=== PATIENT | female | born 1975 ===

== ENCOUNTER 2017-06-30 20:41 | Emergency (ER) | payer OTHER ==
[2017-06-30 21:31] VITALS: BP 188/95; PULSE 93; RESP 16; TEMP 97.8; O2SAT 100; BMI 37.8
--- NOTE | 2017-06-30 21:39 | ED PDOC ---
Arrival/HPI - General Chief Complaint: Eye Problem Time Seen by Provider: 06/30/17 21:19 - History of Present Illness Narrative History of Present Illness (Text): 06/30/17 21:46 Pt is a 41 yo F with PMH of HTN presents to ED with right eye pain. Pt states that she was at work and ID badge slipped out of her hand, which is connected a retractable badge clip, and hit her in the right eye. Pt complains of pain immediately after the event with tearing, foreign body sensation, photophobia, and difficulty keeping eye open 2/2 pain. Pt does not wear contacts. Pt denies CP, SOB, n/v/d, abdominal pain, fever, chills, LAYNE, or dizziness. Past Medical History - Provider Review Nursing Documentation Reviewed: Yes Family/Social History - Physician Review Nursing Documentation Reviewed: Yes Family/Social History: No Known Family HX Allergies/Home Meds Allergies/Adverse Reactions: Allergies No Known Allergies Allergy (Verified 06/30/17 21:31) Review of Systems - Review of Systems Constitutional: Normal Eyes: Vision Changes, Photophobia, Eye Pain (right) ENT: Normal Respiratory: Normal Cardiovascular: Normal Gastrointestinal: Normal Genitourinary Female: Normal Musculoskeletal: Normal Skin: Normal Neurological: Normal Endocrine: Normal Hemo/Lymphatic: Normal Psychiatric: Normal Physical Exam Vital Signs Reviewed: Yes Vital Signs Temp Pulse Resp BP Pulse Ox 06/30/17 21:29 97.8 F 93 H 16 188/95 H 100 Temperature: Afebrile Blood Pressure: Hypertensive Pulse: Regular Respiratory Rate: Normal Appearance: Positive for: Well-Appearing Pain Distress: Moderate Mental Status: Positive for: Alert and Oriented X 3 - Systems Exam Head: Present: Atraumatic, Normocephalic Pupils: Present: PERRL Extroacular Muscles: Present: EOMI Conjunctiva: Present: Injected (right) Mouth: Present: Moist Mucous Membranes Pharnyx: Present: Normal Neck: Present: Normal Range of Motion Respiratory/Chest: Present: Clear to Auscultation. No: Respiratory Distress, Wheezes, Rales, Rhonchi Cardiovascular: Present: Regular Rate and Rhythm, Normal S1, S2. No: Murmurs Abdomen: No: Tenderness, Distention, Rebound, Guarding Neurological: Present: GCS=15 Skin: Present: Warm, Dry, Normal Color Psychiatric: Present: Alert, Oriented x 3 Medical Decision Making ED Course and Treatment: 06/30/17 21:53 Assessment: 41 yo F presents to ED with right eye trauma with likely corneal abrasion. Plan: - Tetracaine and florescein to right eye - Wood Lamp examination Wood lamp examination revealed ~2mm corneal abrasion at 12 o'clock position just superior to iris. Visual acuity 30/20 in both eyes. Patient states that she usually wears glasses , but does not have them today. Discussed findings with patient. Advised topical antibiotics for 5 days to affected eye and follow up with music leader. Patient was also found to be hypertensive, which could be 2/2 to traumatic event. However, due to her h/o hypertension she was advised to follow up with her PMD for further management and evaluation. Patient understood and agreed. Disposition/Present on Arrival - Present on Arrival Any Indicators Present on Arrival: No History of DVT/PE: No History of Uncontrolled Diabetes: No Urinary Catheter: No History of Decub. Ulcer: No - Disposition Have Diagnosis and Disposition been Completed?: Yes Diagnosis: Corneal abrasion, right Disposition: HOME/ ROUTINE Disposition Time: 21:40 Patient Plan: Discharge Condition: STABLE Discharge Instructions (ExitCare): Corneal Abrasion (DC) Additional Instructions: 1. Apply Erythromycin ointment to affected eye four times a day for 5 days 2. Follow up with music leader within 1 week 3. Return to ED if symptoms worsen Prescriptions: Erythromycin 0.5% [Ilytocin] 3.5 gm OD QID 5 Days #1 tube Referrals: Carlitos Jolly MD [Staff Provider] - Follow up with primary Forms: [email or web address] (Estonian)
== END 2017-06-30 22:15 | disposition home or self-care (01) ==
LOC: ED 20:41
DX: S05.01XA Injury of conjunctiva and corneal abrasion without foreign body, right eye, initial encounter (principal); W22.8XXA Striking against or struck by other objects, initial encounter; Y99.0 Civilian activity done for income or pay; I10 Essential (primary) hypertension

== ENCOUNTER 2017-07-15 02:46 | Emergency (ER) | payer OTHER ==
[2017-07-15 02:46] VITALS: BMI 37.8
[2017-07-15 02:58] VITALS: RESP 18; TEMP 97.9
--- NOTE | 2017-07-15 03:06 | ED PDOC ---
Arrival/HPI - General Chief Complaint: Abdominal Pain Time Seen by Provider: 07/15/17 02:49 Historian: Patient - History of Present Illness Narrative History of Present Illness (Text): 07/15/17 03:05 Vanessa Barrera is a 41 year old female who presents to the Emergency department complaining of abdominal pain. Patient states she woke up with epigastric pain at 01:00 tonight. Patient states she last ate eggs at approximately 19:00. Patient notes she recently experienced similar symptoms 5 days ago and took Tylenol and Pepcid with relief, but pain returned tonight. Patient denies any fever, chills, chest pain, shortness of breath, nausea, vomiting, urinary symptoms, back pain, neck pain, headache, dizziness, or any other complaints. Time/Duration: 1-3 hours Symptom Onset: Gradual Symptom Course: Unchanged Activities at Onset: Light, Eating Context: Home Past Medical History - Provider Review Nursing Documentation Reviewed: Yes - Cardiac Hx Hypertension: Yes - Psychiatric Hx Substance Use: No - Anesthesia Hx Anesthesia: No Family/Social History - Physician Review Nursing Documentation Reviewed: Yes Family/Social History: Unknown Family HX Smoking Status: Never Smoked Hx Alcohol Use: Yes Hx Substance Use: No Allergies/Home Meds Allergies/Adverse Reactions: Allergies No Known Allergies Allergy (Verified 07/15/17 04:40) Review of Systems - Physician Review All systems were reviewed & negative as marked: Yes - Review of Systems Constitutional: Normal. absent: Fevers Eyes: Normal ENT: Normal Respiratory: Normal. absent: SOB, Cough Cardiovascular: Normal. absent: Chest Pain Gastrointestinal: Abdominal Pain. absent: Diarrhea, Nausea, Vomiting Genitourinary Female: Normal. absent: Dysuria, Frequency, Hematuria, Urine Output Changes Musculoskeletal: Normal. absent: Back Pain, Neck Pain Skin: Normal. absent: Rash Neurological: Normal. absent: Headache, Dizziness Endocrine: Normal Hemo/Lymphatic: Normal Psychiatric: Normal Physical Exam Vital Signs Reviewed: Yes Vital Signs Temp Pulse Resp BP Pulse Ox 07/15/17 02:55 97.9 F 86 18 174/90 H 99 Temperature: Afebrile Blood Pressure: Normal Pulse: Regular Respiratory Rate: Normal Appearance: Positive for: Well-Appearing, Non-Toxic, Comfortable Pain Distress: None Mental Status: Positive for: Alert and Oriented X 3 - Systems Exam Head: Present: Atraumatic, Normocephalic Pupils: Present: PERRL Extroacular Muscles: Present: EOMI Conjunctiva: Present: Normal Mouth: Present: Moist Mucous Membranes Neck: Present: Normal Range of Motion Respiratory/Chest: Present: Clear to Auscultation, Good Air Exchange. No: Respiratory Distress, Accessory Muscle Use Cardiovascular: Present: Regular Rate and Rhythm, Normal S1, S2. No: Murmurs Abdomen: Present: Tenderness (Epigastric tenderness), Normal Bowel Sounds. No: Distention, Peritoneal Signs Back: Present: Normal Inspection Upper Extremity: Present: Normal Inspection. No: Cyanosis, Edema Lower Extremity: Present: Normal Inspection. No: Edema Neurological: Present: GCS=15, CN II-XII Intact, Speech Normal Skin: Present: Warm, Dry, Normal Color. No: Rashes Psychiatric: Present: Alert, Oriented x 3, Normal Insight, Normal Concentration Medical Decision Making ED Course and Treatment: 07/15/17 03:05 Impression: 41 year old female complaining of epigastric pain since 01:00 today. Plan: -- US Gallbladder and Pancreas -- Labs, lipase -- Urinalysis -- IV fluids -- Elixir -- Maalox -- Pepcid -- Reassess and disposition Progress Notes: 07/15/17 03:15 Reviewed EKG, NSR at [address]-segment elevations or depressions, no T-wave inversions, normal intervals. 07/15/17 05:29 US Gallbladder and Pancreas shows: Liver: The liver is mildly echogenic. This can be seen in the setting of fatty infiltration, hepatitis, cirrhosis, as well as other possibilities, please correlate clinically. No intrahepatic bile duct dilation. Gallbladder: There is cholelithiasis. One gallstone measures 2.3 cm. There is no Bardales's sign. Common bile duct: The common bile duct measures 3 mm. No stones. No dilation. Pancreas: The pancreas is not adequately evaluated due to obscuring bowel gas. Right kidney: Right kidney 11.4 cm. There is a 1.7 cm right renal cyst. No stones. No hydronephrosis. IMPRESSION: 1. There is cholelithiasis. One gallstone measures 2.3 cm. There is no Bardales's sign. 2. The liver is mildly echogenic. This can be seen in the setting of fatty infiltration, hepatitis, cirrhosis, as well as other possibilities, please correlate clinically. 07/15/17 05:50 On re-evaluation, patient feels better and is in no acute distress. I have discussed the results and plan with the patient, who expresses understanding. Patient in agreement with plan to be discharged home. Patient is stable for discharge. Patient was instructed to follow up with physician or return if symptoms worsen or new concerning symptoms arise. - Lab Interpretations Lab Results: 07/15/17 03:44 07/15/17 03:44 Lab Results 07/15/17 03:44: Urine Color Yellow, Urine Appearance Clear, Urine pH 6.0, Ur Specific [place] >= 1.030, Urine Protein Trace H, Urine Glucose (UA) Negative, Urine Ketones Negative, Urine Blood Moderate H, Urine Nitrate Negative, Urine Bilirubin Negative, Urine Urobilinogen 0.2, Ur Leukocyte Esterase Negative, Urine RBC 1 - 3, Urine WBC 0 - 2, Ur Epithelial Cells 4 - 5, Urine Bacteria Few , Urine HCG, Qual Negative 07/15/17 03:44: WBC 9.1, RBC 4.40, Hgb 14.1, Hct 39.7, MCV 90.2, MCH 32.0, MCHC 35.5, RDW 12.4, Plt Count 331, MPV 8.2 07/15/17 03:44: Sodium 142, Potassium 3.5 L, Chloride 104, Carbon Dioxide 25, Anion Gap 17, BUN 14, Creatinine 0.6 L, Est GFR ( Amer) > 60, Est GFR ( Non-Af Amer) > 60, Random Glucose 123 H, Calcium 9.8, Total Bilirubin 0.1 L, AST 21, ALT 27, Alkaline Phosphatase 105, Total Protein 7.4, Albumin 4.0, Globulin 3.4, Albumin/Globulin Ratio 1.2, Lipase 60 I have reviewed the lab results: Yes - RAD Interpretation Radiology Orders: 07/15/17 03:15 GALLBLADDER & PANCREAS [US] Stat Wardrobe Mistress: Radiologist - EKG Interpretation Interpreted by ED Physician: Yes Type: 12 lead EKG - Medication Orders Current Medication Orders: Sodium Chloride (Sodium Chloride 0.9%) 1,000 mls @ 100 mls/hr IV .Q10H SYED Last Admin: 07/15/17 03:47 Dose: 100 mls/hr eMAR Start Stop Document 07/15/17 03:47 RG (Rec: 07/15/17 03:51 [id number]) Intravenous Solution Start Date 07/15/17 Start Time 03:47 Discontinued Medications Al Hydrox/Mg Hydrox/Simethicone (Maalox Plus 30 Ml) 30 ml PO STAT STA Stop: 07/15/17 03:23 Last Admin: 07/15/17 03:46 Dose: 30 ml Belladonna/Phenobarbital ( Elixir) 5 ml PO STAT STA Stop: 07/15/17 03:23 Last Admin: 07/15/17 03:46 Dose: 5 ml Famotidine (Pepcid) 20 mg IVP STAT STA Stop: 07/15/17 03:23 Last Admin: 07/15/17 03:34 Dose: 20 mg IVP Administration Document 07/15/17 03:34 RG (Rec: 07/15/17 03:41 [id number]) Charges for Administration # of IVP Administrations 1 Ketorolac Tromethamine (Toradol) 30 mg IVP ONCE ONE Stop: 07/15/17 04:30 Last Admin: 07/15/17 04:44 Dose: 30 mg MAR Pain Assessment Document 07/15/17 04:44 RG (Rec: 07/15/17 04:45 [id number]) Pain Reassessment Is this a pain reassessment? Yes Sleep Is patient sleeping during reassessment? No Presence of Pain Presence of Pain Yes Pain Scale Used Pain Scale Used Numeric Location Upper or Lower Upper Pain Location Body Site Abdomen Description Description Sharp Intensity of Pain at present 6 Pain Behavior Guarding Rubbing Site Aggravating Factors Contant IVP Administration Document 07/15/17 04:44 RG (Rec: 07/15/17 04:45 [id number]) Charges for Administration # of IVP Administrations 1 - Scribe Statement The provider has reviewed the documentation as recorded by the Scribe Nicki Lima All medical record entries made by the Scribe were at my direction and personally dictated by me. I have reviewed the chart and agree that the record accurately reflects my personal performance of the history, physical exam, medical decision making, and the department course for this patient. I have also personally directed, reviewed, and agree with the discharge instructions and disposition. Disposition/Present on Arrival - Present on Arrival Any Indicators Present on Arrival: No History of DVT/PE: No History of Uncontrolled Diabetes: No Urinary Catheter: No History of Decub. Ulcer: No History Surgical Site Infection Following: None - Disposition Have Diagnosis and Disposition been Completed?: Yes Diagnosis: Cholelithiasis, Abdominal pain Disposition: HOME/ ROUTINE Disposition Time: 05:55 Patient Plan: Discharge Patient Problems: Current Active Problems Problem Status Onset Abdominal pain Acute Cholelithiasis Acute Condition: GOOD Discharge Instructions (ExitCare): Acute Abdomen (Belly Pain), Adult (DC), Gallstones (DC) Additional Instructions: Limit fatty food intake/take meds as prescribed/follow up with your doctor this week/any recurrent severe symptoms return to the emergency room Prescriptions: Phenobarb/Hyoscy/Atropine/Scop [ Tablet] 16.2 mg PO Q6 PRN #14 tablet PRN Reason: Dyspepsia Referrals: Alvin Pope MD [Staff Provider] - Follow up with primary Forms: [employer] (Nauruan)
[2017-07-15] MEDS ORDERED: Alum-Mag Hydrox-Simethicone Susp (30 mL) PO STA (03:22)
[2017-07-15] MEDS ORDERED: Atrop/Hyosc/Scopal/PB Elixir (120 ml) PO STA (03:22)
[2017-07-15] MEDS ORDERED: Sodium Chloride 0.9% 1,000 ML IV SCH (03:30)
[2017-07-15 04:01] LABS: URINE BILIRUBIN NEGATIVE (NEGATIVE); URINE BLOOD MODERATE (NEGATIVE); URINE GLUCOSE (UA) NEGATIVE (NEGATIVE); URINE LEUKOCYTE ESTERASE NEGATIVE Leu/uL (NEGATIVE); URINE PROTEIN TRACE mg/dL (<30 mg/dL); URINE UROBILINOGEN 0.2 E.U./dL (<1 E.U./dL)
[2017-07-15 04:07] LABS: HCG,QUALITATIVE URINE NEGATIVE (NEGATIVE); URINE APPEARANCE CLEAR (CLEAR); URINE COLOR YELLOW (YELLOW)
[2017-07-15 04:10] LABS: HEMOGLOBIN 14.1 g/dL (12.0-16.0); MEAN CELL VOLUME 90.2 fl (80.0-105.0); MEAN CORPUSCULAR HGB CONC 35.5 g/dl (31.0-37.0); MEAN PLATELET VOLUME 8.2 fl (7.0-11.0); RBC 4.4 10^6/uL (3.5-6.1); RED CELL DISTRIBUTION WIDTH 12.4 % (11.5-14.5); WHITE BLOOD COUNT 9.1 10^3/ul (4.5-11.0)
[2017-07-15 04:12] LABS: ALB/GLOB RATIO 1.2 (1.1-1.8); ALT/SGPT 27 U/L (7-56); AST/SGOT 21 U/L (14-36); BLOOD UREA NITROGEN 14 mg/dL (7-21); CALCIUM 9.8 mg/dL (8.4-10.5); GFR AFRICAN-AMERICAN > 60; GFR NON-AFRICAN AMERICAN > 60; LIPASE 60 U/L (23-300)
[2017-07-15 04:22] LABS: URINE BACTERIA FEW (NEG); URINE WBC 0 - 2 /hpf (0-6)
--- NOTE | 2017-07-15 05:27 | US ---
EXAM: US Abdomen Limited, Right Upper Quadrant CLINICAL HISTORY: 41 years old, female; Pain; Other: Ruq TECHNIQUE: Real-time ultrasound of the right upper quadrant with image documentation. COMPARISON: No relevant prior studies available. FINDINGS: Liver: The liver is mildly echogenic. This can be seen in the setting of fatty infiltration, hepatitis, cirrhosis, as well as other possibilities, please correlate clinically. No intrahepatic bile duct dilation. Gallbladder: There is cholelithiasis. One gallstone measures 2.3 cm. There is no Bardales's sign. Common bile duct: The common bile duct measures 3 mm. No stones. No dilation. Pancreas: The pancreas is not adequately evaluated due to obscuring bowel gas. Right kidney: Right kidney 11.4 cm. There is a 1.7 cm right renal cyst. No stones. No hydronephrosis. IMPRESSION: 1. There is cholelithiasis. One gallstone measures 2.3 cm. There is no Bardales's sign. 2. The liver is mildly echogenic. This can be seen in the setting of fatty infiltration, hepatitis, cirrhosis, as well as other possibilities, please correlate clinically.
[2017-07-15 06:00] VITALS: BP 146/83; PULSE 76
[2017-07-15 06:17] VITALS: O2SAT 100
--- NOTE | 2017-07-15 11:20 | CARD ---
APPROVED REPORT EKG Measurement Heart [id number] <Conclusion> Normal sinus rhythm Normal ECG
== END 2017-07-15 06:07 | disposition home or self-care (01) ==
LOC: ED 02:46
DX: K80.20 Calculus of gallbladder without cholecystitis without obstruction (principal); R10.13 Epigastric pain; I10 Essential (primary) hypertension
CPT/HCPCS: 76705; 80053; 81001; 83690; 84703; 85027; 93005; 96374; 96375; 99284; J1885; J7040

== ENCOUNTER 2017-11-01 14:05 | Emergency (ER) | payer OTHER ==
[2017-11-01 14:06] VITALS: BMI 37.8
[2017-11-01 14:21] VITALS: RESP 18; TEMP 98
[2017-11-01] MEDS ORDERED: Sodium Chloride 0.9% 1,000 ML IV STA (14:42)
[2017-11-01] MEDS ORDERED: Atrop/Hyosc/Scopal/PB Elixir (120 ml) PO STA (14:43)
[2017-11-01] MEDS ORDERED: Alum-Mag Hydrox-Simethicone Susp (30 mL) PO STA (14:43)
[2017-11-01] MEDS ORDERED: Lidocaine 2% Viscous 100 ml PO STA (14:43)
--- NOTE | 2017-11-01 14:48 | ED PDOC ---
Arrival/HPI - General Chief Complaint: Abdominal Pain Time Seen by Provider: 11/01/17 14:16 Historian: Patient - History of Present Illness Narrative History of Present Illness (Text): 11/01/17 14:30 41 year old female, whose PMH includes hypertension, hiatal hernia, and cholecystitis, who presents to the emergency department complaining of epigastric pain that became worse since last night at 08:00 PM. Patient reports this problem has been going on for 6 months and was diagnosed with esophagus dysplasia and hiatal hernia by her GI in [place]. Patient reports her GI advised her to come to the emergency department the next time the epigastric pain begins to make sure it is not a heart problem. Patient associates this symptom with weight loss and vomiting x3 last night. patient denies chest pain, shortness of breath, fever, cough, chill, diarrhea, or other complaints. Additionally, she took Tylenol for pain relief. Time/Duration: 24 hours Symptom Onset: Sudden Symptom Course: Unchanged Context: Home Past Medical History - Provider Review Nursing Documentation Reviewed: Yes - Infectious Disease Hx of Infectious Diseases: None - Reproductive Menopause: No - Cardiac Hx Hypertension: Yes - Psychiatric Hx Substance Use: No - Anesthesia Hx Anesthesia: No Family/Social History - Physician Review Nursing Documentation Reviewed: Yes Family/Social History: Unknown Family HX Smoking Status: Never Smoked Hx Alcohol Use: Yes Hx Substance Use: No Allergies/Home Meds Allergies/Adverse Reactions: Allergies No Known Allergies Allergy (Verified 07/15/17 04:40) Review of Systems - Review of Systems Constitutional: Weight Change. absent: Fevers ENT: absent: Sinus Congestion Respiratory: absent: SOB Cardiovascular: absent: Chest Pain Gastrointestinal: Abdominal Pain (epigastric), Nausea, Vomiting. absent: Diarrhea Musculoskeletal: absent: Back Pain Skin: absent: Rash Neurological: absent: Headache Endocrine: absent: Diaphoresis Physical Exam Vital Signs Reviewed: Yes Vital Signs Temp Pulse Resp BP Pulse Ox 11/01/17 17:26 76 18 118/76 98 11/01/17 14:20 98.0 F 87 18 159/88 H 100 Temperature: Afebrile Blood Pressure: Hypertensive Pulse: Regular Respiratory Rate: Normal Appearance: Positive for: Well-Appearing, Non-Toxic, Comfortable Pain Distress: None Mental Status: Positive for: Alert and Oriented X 3 - Systems Exam Head: Present: Atraumatic, Normocephalic Pupils: Present: PERRL Extroacular Muscles: Present: EOMI Conjunctiva: Present: Normal Respiratory/Chest: Present: Clear to Auscultation, Good Air Exchange. No: Respiratory Distress, Accessory Muscle Use, Wheezes, Decreased Breath Sounds, Rales, Retracting, Rhonchi Cardiovascular: Present: Regular Rate and Rhythm, Normal S1, S2. No: Murmurs Abdomen: Present: Tenderness (epigastric ), Normal Bowel Sounds, Guarding. No: Distention, Peritoneal Signs, Rebound Neurological: Present: GCS=15, CN II-XII Intact, Speech Normal Skin: Present: Warm, Dry, Normal Color. No: Rashes Psychiatric: Present: Alert, Oriented x 3, Normal Insight, Normal Concentration Medical Decision Making ED Course and Treatment: 11/01/17 Impression: 41 year old female with epigastric tenderness with guarding complaining of epigastric abdominal pain. Differential Diagnosis included but are not limited to: Abdominal Pain r/o Cholecystitis vs GERD Plan: -- Ultrasound -- Labs -- Pepcid, Zofran, Lidocaine 2%, , Maalox, and Sodium Chloride -- Reassess and disposition Progress Notes: EKG: Ordered, reviewed, and independently interpreted the EKG. Rate : 81 BPM Rhythm : NSR Interpretation : incomplete RBBB T-wave inversion. no different to prior EKG Comparison : 07/15/2017 11/01/17 15:40 Abdomen Ultrasound: Creator : Aron Saez MD COMPARISON: 07/15/2017 abdominal ultrasound FINDINGS: LIVER: Measures 15.3 cm. Hepatopedal blood flow. Fatty infiltration manifest ultrasonographically as increased echogenicity of the liver parenchyma. No mass. No intrahepatic bile duct dilatation. GALLBLADDER: Cholelithiasis. Negative study for gallbladder wall thickening, pericholecystic fluid, sonographic Bardales's sign. Sludge identified. COMMON BILE DUCT: Measures 4.4 mm. No stones. No dilatation. PANCREAS: Obscured by overlying bowel gas. Non diagnostic assessment of the pancreas RIGHT KIDNEY: Measures 4.9 x 11.3cm. Normal echogenicity. No calculus, mass, or hydronephrosis. LEFT KIDNEY: Measures 4.6 x 10.2cm. Normal echogenicity. No calculus, mass, or hydronephrosis. SPLEEN: Normal in size and contour. No mass. AORTA: No aneurysmal dilatation. IVC: Obscured by overlying bowel gas. Non diagnostic assessment of inferior vena cava OTHER FINDINGS: None. IMPRESSION: Cholelithiasis. No sonographic evidence of acute cholecystitis. Sludge also identified. Limitations of the current examination: Nondiagnostic study of the pancreas. The IVC is also obscured by overlying bowel gas 11/01/17 15:40 Patient's US was negative for Acute cholecysitis. I reviewed her labs and significant finding. I discussed the results in detail with the patient. On reevaluation, she felt better and no longer had pain. Her abdomen was soft, not tender, and not distended. She's tolerating PO fluids and food. She will make sure to continue the follow up she has with her GI doctor in [place] and her PMD. She was advised to return to the ED if symptoms worsen or any other concern. - Lab Interpretations Lab Results: 11/01/17 15:55 11/01/17 15:55 Lab Results 11/01/17 15:55: Sodium 142, Potassium 4.1, Chloride 106, Carbon Dioxide 26, Anion Gap 15, BUN 8, Creatinine 0.6 L, Est GFR ( Amer) > 60, Est GFR (Non -Af Amer) > 60, Random Glucose 89, Calcium 8.8, Magnesium 1.9, Total Bilirubin 0.4, AST 21, ALT 19, Alkaline Phosphatase 74, Total Protein 7.3, Albumin 4.0, Globulin 3.3, Albumin/Globulin Ratio 1.2, Lipase 35 11/01/17 15:55: WBC 8.7, RBC 4.39, Hgb 13.9, Hct 39.7, MCV 90.4, MCH 31.7, MCHC 35.0, RDW 12.0, Plt Count 363, MPV 8.5, Gran % 68.5 H, Lymph % (Auto) 24.7, [place] % (Auto) 4.3, Eos % (Auto) 2.3, Baso % (Auto) 0.2, Gran # 5.92, Lymph # ( Auto) 2.1, [place] # (Auto) 0.4, Eos # (Auto) 0.2, Baso # (Auto) 0.02 I have reviewed the lab results: Yes - RAD Interpretation Radiology Orders: 11/01/17 14:42 ABDOMEN COMPLETE [US] [employer] Product Manager: Radiologist - EKG Interpretation Interpreted by ED Physician: Yes Type: 12 lead EKG - Medication Orders Current Medication Orders: Discontinued Medications Al Hydrox/Mg Hydrox/Simethicone (Maalox Plus 30 Ml) 30 ml PO STAT STA Stop: 11/01/17 14:44 Last Admin: 11/01/17 16:03 Dose: 30 ml Belladonna/Phenobarbital ( Elixir) 10 ml PO STAT STA Stop: 11/01/17 14:44 Last Admin: 11/01/17 16:06 Dose: 10 ml Famotidine (Pepcid) 20 mg IVP STAT STA Stop: 11/01/17 14:43 Last Admin: 11/01/17 16:04 Dose: 20 mg IVP Administration Document 11/01/17 16:04 GMD (Rec: 11/01/17 16:04 [email or web address] Charges for Administration # of IVP Administrations 1 Sodium Chloride (Sodium Chloride 0.9%) 1,000 mls @ 1,000 mls/hr IV .Q1H STA Stop: 11/01/17 15:41 Last Admin: 11/01/17 16:01 Dose: 1,000 mls/hr eMAR Start Stop Document 11/01/17 16:01 GMD (Rec: 11/01/17 16:02 [email or web address]) Intravenous Solution Start Date 11/01/17 Start Time 16:02 End Date 11/01/17 End time 17:02 Total Infusion Time 60 Lidocaine HCl (Lidocaine 2% Viscous) 15 ml PO ONCE ONE Stop: 11/01/17 15:01 Last Admin: 11/01/17 16:03 Dose: 15 ml Ondansetron HCl (Zofran Inj) 4 mg IVP STAT STA Stop: 11/01/17 14:43 Last Admin: 11/01/17 16:04 Dose: 4 mg IVP Administration Document 11/01/17 16:04 GMD (Rec: 11/01/17 16:04 [email or web address]) Charges for Administration # of IVP Administrations 1 - Scribe Statement The provider has reviewed the documentation as recorded by the Scribe Jeanette Puga Provider Scribe Attestation: All medical record entries made by the Scribe were at my direction and personally dictated by me. I have reviewed the chart and agree that the record accurately reflects my personal performance of the history, physical exam, medical decision making, and the department course for this patient. I have also personally directed, reviewed, and agree with the discharge instructions and disposition. Disposition/Present on Arrival - Present on Arrival Any Indicators Present on Arrival: No History of DVT/PE: No History of Uncontrolled Diabetes: No Urinary Catheter: No History of Decub. Ulcer: No History Surgical Site Infection Following: None - Disposition Have Diagnosis and Disposition been Completed?: Yes Diagnosis: Abdominal pain Disposition: HOME/ ROUTINE Disposition Time: 15:40 Patient Plan: Discharge Condition: IMPROVED Discharge Instructions (ExitCare): Acute Abdomen (Belly Pain) Additional Instructions: ADIA GU, thank you for letting us take care of you today. Your provider was Tony Delgadillo DO and you were treated for ABDOMINAL PAIN. The emergency medical care you received today was directed at your acute symptoms. If you were prescribed any medication, please fill it and take as directed. It may take several days for your symptoms to resolve. Return to the Emergency Department if your symptoms worsen, do not improve, or if you have any other problems. Please contact your doctor or call one of the physicians/clinics you have been referred to that are listed on the Patient Visit Information form that is included in your discharge packet. Bring any paperwork you were given at discharge with you along with any medications you are taking to your follow up visit. Our treatment cannot replace ongoing medical care by a primary care provider outside of the emergency department. Thank you for allowing the [facility] team to be part of your care today. If you had an X-Ray or CT scan: A Radiologist will review the ED reading if any change in treatment is needed we will contact you. If you had a blood, urine, or wound culture: It will take several days for the results, if any change in treatment is needed we will contact you. If you had an STI test: It will take 48 hours for the results. Please call after 1 week if you have not heard back. Prescriptions: Phenobarb/Hyoscy/Atropine/Scop [ Elixir] 16.2 mg PO BID PRN #1 elixir PRN Reason: Pain, Mild (1-3) Referrals: Kaia Shook MD [Staff Provider] - Follow up with primary Forms: [employer] (Qatari), WORK NOTE
--- NOTE | 2017-11-01 15:38 | US ---
HISTORY: Coronal pain r/o cholecystitis COMPARISON: 07/15/2017 abdominal ultrasound TECHNIQUE: Sonographic evaluation of the abdomen. FINDINGS: LIVER: Measures 15.3 cm. Hepatopedal blood flow. Fatty infiltration manifest ultrasonographically as increased echogenicity of the liver parenchyma. No mass. No intrahepatic bile duct dilatation. GALLBLADDER: Cholelithiasis. Negative study for gallbladder wall thickening, pericholecystic fluid, sonographic Bardales's sign. Sludge identified. COMMON BILE DUCT: Measures 4.4 mm. No stones. No dilatation. PANCREAS: Obscured by overlying bowel gas. Non diagnostic assessment of the pancreas RIGHT KIDNEY: Measures 4.9 x 11.3cm. Normal echogenicity. No calculus, mass, or hydronephrosis. LEFT KIDNEY: Measures 4.6 x 10.2cm. Normal echogenicity. No calculus, mass, or hydronephrosis. SPLEEN: Normal in size and contour. No mass. AORTA: No aneurysmal dilatation. IVC: Obscured by overlying bowel gas. Non diagnostic assessment of inferior vena cava OTHER FINDINGS: None. IMPRESSION: Cholelithiasis. No sonographic evidence of acute cholecystitis. Sludge also identified. Limitations of the current examination: Nondiagnostic study of the pancreas. The IVC is also obscured by overlying bowel gas
[2017-11-01 16:21] LABS: BASO # 0.02 K/mm3 (0.0-2.0); BASO % 0.2 % (0.0-3.0); EOS # 0.2 (0.0-0.7); EOS % 2.3 % (1.5-5.0); GRAN # 5.92 (1.4-6.5); GRAN % 68.5 % (50.0-68.0); HEMOGLOBIN 13.9 g/dL (12.0-16.0); LYMPH # 2.1 (1.2-3.4); LYMPH % 24.7 % (22.0-35.0); MEAN CELL VOLUME 90.4 fl (80.0-105.0); MEAN CORPUSCULAR HEMOGLOBIN 31.7 pg (25.0-35.0); MEAN PLATELET VOLUME 8.5 fl (7.0-11.0); MONO # 0.4 (0.1-0.6); MONO % 4.3 % (1.0-6.0); RBC 4.39 10^6/uL (3.5-6.1); WHITE BLOOD COUNT 8.7 10^3/ul (4.5-11.0)
[2017-11-01 16:22] LABS: ALB/GLOB RATIO 1.2 (1.1-1.8); ALT/SGPT 19 U/L (7-56); AST/SGOT 21 U/L (14-36); BLOOD UREA NITROGEN 8 mg/dL (7-21); CALCIUM 8.8 mg/dL (8.4-10.5); GFR AFRICAN-AMERICAN > 60; GFR NON-AFRICAN AMERICAN > 60; LIPASE 35 U/L (23-300)
[2017-11-01 17:27] VITALS: BP 118/76; PULSE 76; O2SAT 98
--- NOTE | 2017-11-02 08:34 | CARD ---
APPROVED REPORT EKG Measurement Heart [id number] MN [id number] [id number] <Conclusion> Normal sinus rhythm Incomplete right bundle branch block PRWP NSSTW changes
== END 2017-11-01 17:32 | disposition home or self-care (01) ==
LOC: ED 14:05
DX: R10.13 Epigastric pain (principal); I10 Essential (primary) hypertension
CPT/HCPCS: 76700; 80053; 83690; 83735; 85025; 93005; 96361; 96374; 96375; 99284; J2405; J7030

== ENCOUNTER 2017-11-22 00:44 | Inpatient (IN) | payer OTHER ==
[2017-11-22 00:50] VITALS: BMI 29.5
--- NOTE | 2017-11-22 00:57 | ED PDOC ---
Arrival/HPI - General Time Seen by Provider: 11/22/17 00:53 Historian: Patient - History of Present Illness Narrative History of Present Illness (Text): 11/22/17 00:57 Glen Barrera is a 42 year old female, whose past medical history includes hypertension, hiatal hernia, and cholelithiaisis, who presents to the emergency department complaining of chest/abdominal pain. Patient states she has been experiencing worsening epigastric abdominal pain radiating to her chest and back for the past 24 hours. Patient notes she recently underwent an endoscopy and CT Abdomen/Pelvis and was advised to undergo a HIDA scan by her nutter up. Patient denies any fevers, chills, shortness of breath, nausea, vomiting, diarrhea, urinary symptoms, headache, dizziness, or any other complaint. Symptom Onset: Gradual Symptom Course: Unchanged Activities at Onset: Light Context: Home Past Medical History - Provider Review Nursing Documentation Reviewed: Yes - Infectious Disease Hx of Infectious Diseases: None - Cardiac Hx Hypertension: Yes - Psychiatric Hx Substance Use: No - Anesthesia Hx Anesthesia: No Family/Social History - Physician Review Nursing Documentation Reviewed: Yes Family/Social History: Unknown Family HX Smoking Status: Never Smoked Hx Alcohol Use: Yes Hx Substance Use: No Allergies/Home Meds Allergies/Adverse Reactions: Allergies No Known Allergies Allergy (Verified 11/22/17 00:59) Home Medications: Home Meds Medication Instructions Recorded Confirmed No Known Home Med 11/22/17 11/22/17 Review of Systems - Physician Review All systems were reviewed & negative as marked: Yes - Review of Systems Constitutional: Normal. absent: Fevers Eyes: Normal ENT: Normal Respiratory: Normal. absent: SOB, Cough Gastrointestinal: Abdominal Pain Genitourinary Female: Normal. absent: Dysuria, Frequency, Hematuria, Urine Output Changes Skin: Normal. absent: Rash Neurological: Normal. absent: Headache, Dizziness Endocrine: Normal Hemo/Lymphatic: Normal Psychiatric: Normal Physical Exam Vital Signs Reviewed: Yes Vital Signs Temp Pulse Resp BP Pulse Ox 11/22/17 04:24 91 H 18 144/85 99 11/22/17 00:59 99.3 F 98 H 18 145/93 H 100 Temperature: Afebrile Blood Pressure: Normal Pulse: Regular Respiratory Rate: Normal Appearance: Positive for: Well-Appearing, Non-Toxic, Comfortable Pain Distress: None Mental Status: Positive for: Alert and Oriented X 3 - Systems Exam Head: Present: Atraumatic, Normocephalic Pupils: Present: PERRL Extroacular Muscles: Present: EOMI Conjunctiva: Present: Normal Mouth: Present: Moist Mucous Membranes Neck: Present: Normal Range of Motion Respiratory/Chest: Present: Clear to Auscultation, Good Air Exchange. No: Respiratory Distress, Accessory Muscle Use Cardiovascular: Present: Regular Rate and Rhythm, Normal S1, S2. No: Murmurs Abdomen: Present: Tenderness (Tenderness to epigastric/upper abdominal region). No: Distention, Peritoneal Signs Back: Present: Normal Inspection Upper Extremity: Present: Normal Inspection. No: Cyanosis, Edema Lower Extremity: Present: Normal Inspection. No: Edema Neurological: Present: GCS=15, CN II-XII Intact, Speech Normal Skin: Present: Warm, Dry, Normal Color. No: Rashes Psychiatric: Present: Alert, Oriented x 3, Normal Insight, Normal Concentration Medical Decision Making ED Course and Treatment: 11/22/17 00:57 Impression: 42 year old female complaining of epigastric pain radiating to chest and back x 1 day. Plan: -- US Gallbladder and Pancreas -- EKG -- CXR -- Labs, lipase -- Reassess and disposition Prior Visits: Notes and results from previous visits were reviewed. Progress Notes: Reviewed EKG, sinus tachycardia at 101 bpm. Incomplete RBBB. Non-specific ST/T wave changes. 11/22/17 02:44 US Gallbladder and Pancreas shows: Liver: No mass. No intrahepatic bile duct dilation. Gallbladder: There is a 2.5 cm impacted stone in the gallbladder neck. There is a stone in the gallbladder fundus with extensive shadowing. Extensive shadowing limits the visualization of the gallbladder. Gallbladder wall is limited. Common bile duct: Unremarkable as visualized 4 mm. No stones. No dilation. Pancreas: The pancreas is poorly-visualized due to overlying bowel gas. Right kidney: Unremarkable. No stones. No solid mass. No hydronephrosis. IMPRESSION: Cholelithiasis. Gallbladder neck stone. Additional findings: Right renal cyst. 11/22/17 04:[address] Barth, covering for Dr. Wolfe, who is aware and agrees with plan. Accepts pt in to her service. Pt will be admitted to [facility] for biliary colic and acute cholecystitis. - Lab Interpretations Lab Results: 11/22/17 02:01 11/22/17 02:01 Lab Results 11/22/17 02:01: WBC 16.1 H D, RBC 4.75, Hgb 15.3, Hct 42.3, MCV 89.1, MCH 32.2, MCHC 36.2, RDW 12.0, Plt Count 347, MPV 8.6 11/22/17 02:01: Sodium 139, Potassium 4.4, Chloride 103, Carbon Dioxide 21, Anion Gap 19, BUN 7, Creatinine 0.5 L, Est GFR ( Amer) > 60, Est GFR (Non -Af Amer) > 60, Random Glucose 100, Calcium 9.3, Total Bilirubin 0.8, AST 24, ALT 30, Alkaline Phosphatase 91, Lactate Dehydrogenase 309 L, Total Creatine Kinase 34 L, Troponin I < 0.01, Total Protein 8.3, Albumin 4.6, Globulin 3.7, Albumin/Globulin Ratio 1.2, Lipase 50 - RAD Interpretation Radiology Orders: 11/22/17 00:59 CHEST PORTABLE [RAD] Stat 11/22/17 01:00 GALLBLADDER & PANCREAS [US] Stat - EKG Interpretation Interpreted by ED Physician: Yes Type: 12 lead EKG - Medication Orders Current Medication Orders: Sodium Chloride (Sodium Chloride 0.9%) 1,000 mls @ 999 mls/hr IV .Q1H1M STA Stop: 11/22/17 04:53 Last Admin: 11/22/17 04:15 Dose: 999 mls/hr eMAR Start Stop Document 11/22/17 04:15 RG (Rec: 11/22/17 04:36 [id number]) Intravenous Solution Start Date 11/22/17 Start Time 04:15 Discontinued Medications Ceftriaxone Sodium (Rocephin 1 Gram Ivpb) 1 gm in 100 mls @ 200 mls/hr IV ONCE STA PRN Reason: Protocol Stop: 11/22/17 03:15 Last Admin: 11/22/17 03:20 Dose: 200 mls/hr eMAR Start Stop Document 11/22/17 03:20 RG (Rec: 11/22/17 03:41 [id number]) Intravenous Solution Start Date 11/22/17 Start Time 03:20 Metronidazole (Flagyl) 500 mg in 100 mls @ 100 mls/hr IVPB STAT STA PRN Reason: Protocol Stop: 11/22/17 03:46 Morphine Sulfate (Morphine) 2 mg IVP STAT STA Stop: 11/22/17 02:49 Last Admin: 11/22/17 03:10 Dose: 2 mg Re-Assess: MAR Pain Assessment Document 11/22/17 04:10 RG (Rec: 11/22/17 04:[id number] Pain Reassessment Is this a pain reassessment? Yes Sleep Is patient sleeping during reassessment? No Presence of Pain Presence of Pain Yes Pain Scale Used Pain Scale Used Numeric Description Intensity of Pain at present 8 Morphine Sulfate (Morphine) 2 mg IVP STAT STA Stop: 11/22/17 03:54 Last Admin: 11/22/17 04:15 Dose: 2 mg MAR Pain Assessment Document 11/22/17 04:15 RG (Rec: 11/22/17 04:35 [id number] Pain Reassessment Is this a pain reassessment? Yes Presence of Pain Presence of Pain Yes Location Upper or Lower Upper Pain Location Body Site Chest Abdomen Description Description Constant Intensity of Pain at present 8 Acceptable Level of Pain 4 Pain Behavior Moaning Crying Guarding IVP Administration Document 11/22/17 04:15 RG (Rec: 11/22/17 04:35 [id number] Charges for Administration # of IVP Administrations 1 Ondansetron HCl (Zofran Inj) 4 mg IVP ONCE ONE Stop: 11/22/17 02:49 Last Admin: 11/22/17 03:24 Dose: 4 mg IVP Administration Document 11/22/17 03:24 RG (Rec: 11/22/17 03:26 [id number] Charges for Administration # of IVP Administrations 1 Ondansetron HCl (Zofran Inj) 4 mg IVP ONCE ONE Stop: 11/22/17 03:54 Last Admin: 11/22/17 04:15 Dose: 4 mg IVP Administration Document 11/22/17 04:15 RG (Rec: 11/22/17 04:33 [id number] Charges for Administration # of IVP Administrations 1 - Scribe Statement The provider has reviewed the documentation as recorded by the Jinnyibtomi Lima Provider Scribe Attestation: All medical record entries made by the Scribe were at my direction and personally dictated by me. I have reviewed the chart and agree that the record accurately reflects my personal performance of the history, physical exam, medical decision making, and the department course for this patient. I have also personally directed, reviewed, and agree with the discharge instructions and disposition. Disposition/Present on Arrival - Present on Arrival Any Indicators Present on Arrival: No History of DVT/PE: No History of Uncontrolled Diabetes: No Urinary Catheter: No History of Decub. Ulcer: No History Surgical Site Infection Following: None - Disposition Have Diagnosis and Disposition been Completed?: Yes Diagnosis: Cholecystitis, Biliary colic Disposition: HOSPITALIZED Disposition Time: 04:46 Condition: STABLE
[2017-11-22 02:11] LABS: HEMOGLOBIN 15.3 g/dL (12.0-16.0); MEAN CELL VOLUME 89.1 fl (80.0-105.0); MEAN CORPUSCULAR HEMOGLOBIN 32.2 pg (25.0-35.0); MEAN CORPUSCULAR HGB CONC 36.2 g/dl (31.0-37.0); MEAN PLATELET VOLUME 8.6 fl (7.0-11.0); RBC 4.75 10^6/uL (3.5-6.1); WHITE BLOOD COUNT 16.1 10^3/ul (4.5-11.0)
[2017-11-22] MEDS ORDERED: cefTRIAXone 1 gm 1 GM/100 ML BAG IV STA (02:46)
[2017-11-22] MEDS ORDERED: metroNIDAZOLE IV 500 mg/100 ml 500 MG/100 ML BAG IVPB STA (02:47)
[2017-11-22] MEDS ORDERED: Morphine 2 mg/ml ISec IVP STA ×2 (02:48→03:53)
[2017-11-22 02:57] LABS: ALB/GLOB RATIO 1.2 (1.1-1.8); ALBUMIN 4.6 g/dL (3.0-4.8); ALT/SGPT 30 U/L (7-56); AST/SGOT 24 U/L (14-36); BLOOD UREA NITROGEN 7 mg/dL (7-21); CALCIUM 9.3 mg/dL (8.4-10.5); GFR AFRICAN-AMERICAN > 60; GFR NON-AFRICAN AMERICAN > 60; LIPASE 50 U/L (23-300); TROPONIN I < 0.01 ng/mL
[2017-11-22] MEDS ORDERED: Sodium Chloride 0.9% 1,000 ML IV STA ×2 (03:53→04:46)
[2017-11-22] MEDS ORDERED: Morphine 2 mg/ml ISec IVP PRN (06:24)
--- NOTE | 2017-11-22 07:31 | CP.PCM.CON ---
History of Present Illness - History of Present Illness History of Present Illness: Surgery Consult: Dr. Sanderson Pt is a 42F with PMHx significant for HTN & cholelithiasis who presents to [facility] [place] with complaints of abdominal pain that started on Thursday. Pt states she has had abdominal pain on & off since June, and has been following up with a GI Dr. Aragon at [place]. Pt reports pain at the epigastric region with intolerance to certain foods. She states she underwent EGD in July which showed metaplasia and she was started on Prilosec, however her symptoms have not improved. She reports associated N/V, as well as weight loss of 45lbs since July without trying. Pt reports the current episode started on thursday with the same epigastric pain. She also admits to bilious vomiting but denies blood. Denies bloody BMs, fevers or chills. In the ER, pt had an US of her RUQ which shows cholelithiasis & + sonographic Bardales's sign. Surgery consulted to evaluate. Currently, pt is resting comfortably. States her pain has slightly improved but still present. Denies N/V , F/C, chest pain or SOB. PMHx: HTN, cholelithiasis PSHx: denies SocialHx: denies smoking/drugs, social EtOH NKDA Review of Systems - Review of Systems All systems: reviewed and no additional remarkable complaints except (as per HPI ) Past Patient History - Infectious Disease Hx of Infectious Diseases: None - Past Social History Smoking Status: Never Smoked - CARDIAC Hx Hypertension: Yes - PSYCHIATRIC Hx Substance Use: No - SURGICAL HISTORY Hx Surgeries: No - ANESTHESIA Hx Anesthesia: No Meds Allergies/Adverse Reactions: Allergies Allergy/AdvReac Type Severity Reaction Status Date / Time No Known Allergies Allergy Verified 11/22/17 00:59 - Medications Medications: Current Medications Sodium Chloride (Sodium Chloride 0.9%) 1,000 mls @ 100 mls/hr IV .Q10H STA Stop: 11/22/17 14:45 Last Admin: 11/22/17 05:09 Dose: 100 mls/hr Cefoxitin Sodium 1 gm/ Sodium (Chloride) 100 mls @ 100 mls/hr IV Q8H SYED PRN Reason: Protocol Stop: 11/24/17 06:31 Metronidazole (Flagyl) 500 mg in 100 mls @ 100 mls/hr IVPB Q8 SYED PRN Reason: Protocol Stop: 11/24/17 14:01 Morphine Sulfate (Morphine) 2 mg IVP Q4H PRN PRN Reason: Pain, moderate (4-7) Last Admin: 11/22/17 06:54 Dose: 2 mg Ondansetron HCl (Zofran Inj) 4 mg IVP Q4H PRN PRN Reason: Nausea/Vomiting Last Admin: 11/22/17 06:54 Dose: 4 mg Physical Exam - Constitutional Appears: Well, No Acute Distress - Head Exam Head Exam: ATRAUMATIC, NORMOCEPHALIC - Eye Exam Eye Exam: Normal appearance - ENT Exam ENT Exam: Mucous Membranes Moist - Respiratory Exam Respiratory Exam: NORMAL BREATHING PATTERN - Cardiovascular Exam Cardiovascular Exam: RRR - GI/Abdominal Exam GI & Abdominal Exam: Soft, Tenderness (RUQ/epigastric region ). absent: Distended, Guarding, Rebound - Extremities Exam Extremities exam: Negative for: tenderness - Neurological Exam Neurological exam: Alert, Oriented x3 - Skin Skin Exam: Dry, Warm Results - Vital Signs Recent Vital Signs: Last Vital Signs Temp 98.4 F 11/22/17 04:59 Pulse 82 11/22/17 04:59 Resp 14 11/22/17 04:59 BP 142/82 11/22/17 04:59 Pulse Ox 100 11/22/17 04:59 - Labs Result Diagrams: 11/22/17 02:01 11/22/17 02:01 - Imaging and Cardiology US - abdomen Status: Image reviewed by me, Report reviewed by me Assessment & Plan - Assessment and Plan (Free Text) Assessment: 42F with cholelithiasis & probable cholecystitis Plan: - will discuss need for HIDA with Dr. Sanderson - IVF & IV ABX - pain management - d/w Dr. Kin Larkin
[2017-11-22] MEDS ORDERED: HYDROmorphone 0.5 mg/0.5 ml ISec IVP PRN (07:43)
--- NOTE | 2017-11-22 11:00 | RAD ---
Date of service: 11/22/2017 HISTORY: fever COMPARISON: No prior. FINDINGS: LUNGS: No active pulmonary disease. PLEURA: No significant pleural effusion identified, no pneumothorax apparent. CARDIOVASCULAR: Normal. OSSEOUS STRUCTURES: No significant abnormalities. VISUALIZED UPPER ABDOMEN: Normal. OTHER FINDINGS: None. IMPRESSION: No active disease.
--- NOTE | 2017-11-22 11:10 | US ---
Date of service: 11/22/2017 HISTORY: pain COMPARISON: 11/01/2017. TECHNIQUE: Sonographic evaluation of the right upper quadrant of the abdomen. FINDINGS: LIVER: Measures 16.0 cm in length. Hepatopedal blood flow. Fatty infiltration manifest ultrasonographically as increased echogenicity of the liver parenchyma. No mass. No intrahepatic bile duct dilatation. GALLBLADDER: Gallstones including 2.5 cm stone impacted in the neck of the gallbladder. Positive sonographic Bardales's sign. COMMON BILE DUCT: Measures 4.5 mm. No stones. No dilatation. PANCREAS: Obscured by overlying bowel gas. Non diagnostic assessment of the pancreas RIGHT KIDNEY: Measures 4.4 x 11.1 cm in length. Normal echogenicity. No calculus, mass, or hydronephrosis.Incidental finding(s): Simple cyst midpole 1.2 x 1.3 cm. AORTA: No aneurysmal dilatation. IVC: Unremarkable. OTHER FINDINGS: None . IMPRESSION: Cholelithiasis/positive sonographic Bardales's sign presumptive evidence for acute cholecystitis. Limitations of the current examination: Nondiagnostic assessment of the pancreas. Concordant results (preliminary interpretation) provided by [facility]. Procedure Completed: 01:28. Preliminary ([facility]) Report: Dictated and Authenticated: 02:42 Final Interpretation: 11:09. November 22, 2017.
[2017-11-22] MEDS: HYDROmorphone 2 mg/ml ISec IVP PRN ×3 (12:03→21:10)
--- NOTE | 2017-11-22 12:52 | CARD ---
APPROVED REPORT Date of service: 11/22/2017 EKG Measurement Heart [id number] OR [id number] <Conclusion> Sinus tachycardia Incomplete right bundle branch block Cannot rule out Anterior infarct, age undetermined Abnormal ECG
[2017-11-22] MEDS: cefOXitin Sodium 1 GM in Sodium Chloride 0.9% 100 ML IV SCH ×2 (14:00→22:26)
[2017-11-22] MEDS: metroNIDAZOLE IV 500 mg/100 ml 500 MG/100 ML BAG IVPB SCH ×2 (14:00→21:10)
--- NOTE | 2017-11-22 14:14 | CP.PCM.CON ---
<Artemio Howard - Last Filed: 11/22/17 14:41> History of Present Illness - History of Present Illness History of Present Illness: Glen Barrera is a 42F with PMHx significant for HTN and cholelithiasis who presents to ER with complaints of epigastric and RUQ pain. she states that her pain acutely worsened since Thursday. Pt states that her pain initially started in June. She saw a local GI in [place] at [place], but later followed with Dr. Aragon at [place]. Pt reports pain at the epigastric region with intolerance to certain foods. She states she underwent EGD in July which showed metaplasia and was started on Prilosec. She reports associated N/V, as well as weight loss of 45lbs since July without trying. Pt reports the current episode started on thursday with the same epigastric pain. She also admits to bilious vomiting but denies blood. Denies bloody BMs, fevers or chills. U/S revealed cholelithiasis & + sonographic Bardales's sign. Surgery consulted to evaluate. Since being admitted, her pain has improved and denies any nausea and vomiting. PMHx: HTN, cholelithiasis PSHx: denies SocialHx: denies smoking/drugs, social EtOH Family hx: Reviewed, Denies any hx of GI related malignancy ROS: 12 point ROS conducted, neg other than above Past Patient History - Infectious Disease Hx of Infectious Diseases: None - Past Social History Smoking Status: Never Smoked - CARDIAC Hx Hypertension: Yes - MUSCULOSKELETAL/RHEUMATOLOGICAL Hx Falls: No - PSYCHIATRIC Hx Substance Use: No - SURGICAL HISTORY Hx Surgeries: No - ANESTHESIA Hx Anesthesia: No Meds Allergies/Adverse Reactions: Allergies Allergy/AdvReac Type Severity Reaction Status Date / Time No Known Allergies Allergy Verified 11/22/17 00:59 - Medications Medications: Current Medications Hydromorphone HCl (Dilaudid) 2 mg IVP Q4H PRN PRN Reason: Pain, severe (8-10) Last Admin: 11/22/17 12:03 Dose: 2 mg Cefoxitin Sodium 1 gm/ Sodium (Chloride) 100 mls @ 100 mls/hr IV Q8H SYED PRN Reason: Protocol Stop: 11/24/17 06:31 Metronidazole (Flagyl) 500 mg in 100 mls @ 100 mls/hr IVPB Q8 SYED PRN Reason: Protocol Stop: 11/24/17 14:01 Lactated Ringer's (Lactated Ringer's) 1,000 mls @ 125 mls/hr IV .Q8H SYED Ondansetron HCl (Zofran Inj) 4 mg IVP Q4H PRN PRN Reason: Nausea/Vomiting Last Admin: 11/22/17 06:54 Dose: 4 mg Physical Exam - Constitutional Appears: Well, No Acute Distress - Head Exam Head Exam: ATRAUMATIC, NORMOCEPHALIC - Eye Exam Eye Exam: Normal appearance - ENT Exam ENT Exam: Mucous Membranes Moist, Normal Exam - Neck Exam Neck exam: Positive for: Normal Inspection - Respiratory Exam Respiratory Exam: Clear to Auscultation Bilateral, NORMAL BREATHING PATTERN. absent: Rhonchi, Wheezes, Respiratory Distress - Cardiovascular Exam Cardiovascular Exam: REGULAR RHYTHM, +S1, +S2 - GI/Abdominal Exam GI & Abdominal Exam: Normal Bowel Sounds, Tenderness (RUQ and epigastric areas) . absent: Distended, Firm, Guarding, Organomegaly, Pulsatile Mass, Rebound, Rigid - Extremities Exam Extremities exam: Negative for: joint swelling, pedal edema - Neurological Exam Neurological exam: Alert, Oriented x3 - Psychiatric Exam Psychiatric exam: Normal Affect, Normal Mood - Skin Skin Exam: Dry, Intact, Normal Color, Warm Results - Vital Signs Recent Vital Signs: Last Vital Signs Temp 98.4 F 11/22/17 08:27 Pulse 85 11/22/17 08:27 Resp 19 11/22/17 08:27 BP 150/83 11/22/17 08:27 Pulse Ox 98 11/22/17 08:27 - Labs Result Diagrams: 11/22/17 02:01 11/22/17 02:01 Assessment & Plan - Assessment and Plan (Free Text) Assessment: Glen Barrera is a 42F with PMHx significant for HTN and cholelithiasis who presents to ER with complaints of epigastric and RUQ pain. she states that her pain acutely worsened RUQ Pain, etiology likely biliary Suspect Cholecystitis Intestinal Metaplasia Cholelithiasis Plan: -reviewed U/S -CBD WNL -continue abx -Surgery on board -agree with HIDA -no planned endoscopy at this time -continue IV fluids -diet as per surgery D/W Dr. Fall <Aura Fall V - Last Filed: 11/22/17 18:56> Meds - Medications Medications: Current Medications Hydromorphone HCl (Dilaudid) 2 mg IVP Q4H PRN PRN Reason: Pain, severe (8-10) Last Admin: 11/22/17 16:44 Dose: 2 mg Cefoxitin Sodium 1 gm/ Sodium (Chloride) 100 mls @ 100 mls/hr IV Q8H SYED PRN Reason: Protocol Stop: 11/24/17 06:31 Last Admin: 11/22/17 14:00 Dose: 100 mls/hr Metronidazole (Flagyl) 500 mg in 100 mls @ 100 mls/hr IVPB Q8 SYED PRN Reason: Protocol Stop: 11/24/17 14:01 Last Admin: 11/22/17 14:00 Dose: 100 mls/hr Lactated Ringer's (Lactated Ringer's) 1,000 mls @ 125 mls/hr IV .Q8H SYED Ondansetron HCl (Zofran Inj) 4 mg IVP Q4H PRN PRN Reason: Nausea/Vomiting Last Admin: 11/22/17 16:53 Dose: 4 mg Results - Vital Signs Recent Vital Signs: Last Vital Signs Temp 98.3 F 11/22/17 16:57 Pulse 89 11/22/17 16:57 Resp 18 11/22/17 16:57 BP 147/100 H 11/22/17 16:57 Pulse Ox 100 11/22/17 16:57 - Labs Result Diagrams: 11/22/17 02:01 11/22/17 02:01 Attending/Attestation - Attestation I have personally seen and examined this patient.: Yes I have fully participated in the care of the patient.: Yes I have reviewed all pertinent clinical information: Yes Notes (Text): This is an addendum to GI consult report dictated by the GI Fellow.The patient was seen and examined earlier. Medical records, lab studies, imagings were reviewed. Last 24 hours events reviewed. 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 Continue antibiotics 2. HIDA scan 3. MRI of the abdomen with MRCP to further evaluate the lymphadenopathy and rule out any pancreatic biliary lesions Discussed with the patient at length and also with Dr Barth 11/22/17 18:44
[2017-11-22] MEDS: Lactated Ringer's 1,000 ML IV SCH (20:04)
--- NOTE | 2017-11-23 01:37 | HP ---
HISTORY OF PRESENT ILLNESS: The patient is a 42-year-old [place] female. The patient states she has been having intermittent right upper quadrant pain since June, and has not been able to tolerate any significant food, has been living on cracker and Gatorade, was evaluated in [place]. CT scan showed cholelithiasis. She was scheduled to have HIDA scan done, but it never happened. Denies any other significant complaint; complain of feeling intermittent nausea. ALLERGIES: SHE IS NOT ALLERGIC TO ANY MEDICATIONS. MEDICATIONS AT HOME: She does not really take much medications at home. SOCIAL HISTORY: Denies smoking, drinking or alcohol use. Only drinks alcohol socially. PHYSICAL EXAMINATION: GENERAL: She is awake, alert, oriented, communicative. VITAL SIGNS: She is afebrile, pulse 85, respirations 19, blood pressure 150/83. LUNGS: Bilateral fair airflow. No rhonchi or crackle. HEART: S1 and S2 audible. ABDOMEN: Soft, nontender. No rebound, no guarding. Right upper quadrant, palpable discomfort with slight guarding. NEUROLOGIC: The patient is awake and alert, able to communicate. LABORATORY DATA: WBC 16.1, hemoglobin 15, hematocrit 42, platelets 347. Chemistry, sodium 139, potassium 4.4,. chloride 103, CO2 of 21, BUN 7, creatinine 0.5, blood sugar of 100, LFTs are within normal limits, LDH is 309, CPK 34, troponin 0.01. Gallbladder sonogram done that shows cholelithiasis and positive sonographic Bardales sign for acute cholecystitis. ASSESSMENT: 1. Acute cholecystitis. 2. Cholelithiasis. 3. Weight loss because of poor oral intake. PLAN: The patient is scheduled to have a HIDA scan in a.m. We will order for MRCP in a.m. We will continue her on IV fluids, continue on metronidazole. Follow up CBC and CMP in a.m. Betzaida Barth MD
[2017-11-23] MEDS: HYDROmorphone 2 mg/ml ISec IVP PRN ×2 (02:00→06:00)
[2017-11-23] MEDS: metroNIDAZOLE IV 500 mg/100 ml 500 MG/100 ML BAG IVPB SCH ×3 (05:29→21:15)
--- NOTE | 2017-11-23 06:32 | CP.PCM.PN ---
<Jeana Martinez - Last Filed: 11/23/17 11:20> Subjective - Date & Time of Evaluation Date of Evaluation: 11/23/17 Time of Evaluation: 06:32 - Subjective Subjective: Jeana Martinez DO, PGY-2: GI Progress Note for Dr. Fall Patient was seen and examined at bedside. Patient reports continued pain in RUQ of the abdomen. She denies fever or chills. She has no appetite and reports nausea.. Chart review indicates no adverse events overnight. Patient request if her Lisinopril 10 mg can be continued. Objective - Vital Signs/Intake and Output Vital Signs (last 24 hours): Temp Pulse Resp BP Pulse Ox 98.3 F 89 18 147/100 H 100 11/22/17 16:57 11/22/17 16:57 11/22/17 16:57 11/22/17 16:57 11/22/17 16:57 Intake and Output: 11/22/17 11/23/17 18:59 06:59 Intake Total 0 Balance 0 - Medications Medications: Current Medications Hydromorphone HCl (Dilaudid) 2 mg IVP Q4H PRN PRN Reason: Pain, severe (8-10) Last Admin: 11/23/17 06:00 Dose: 2 mg Cefoxitin Sodium 1 gm/ Sodium (Chloride) 100 mls @ 100 mls/hr IV Q8H SYED PRN Reason: Protocol Stop: 11/24/17 06:31 Last Admin: 11/22/17 22:26 Dose: 100 mls/hr Metronidazole (Flagyl) 500 mg in 100 mls @ 100 mls/hr IVPB Q8 SYED PRN Reason: Protocol Stop: 11/24/17 14:01 Last Admin: 11/23/17 05:29 Dose: 100 mls/hr Lactated Ringer's (Lactated Ringer's) 1,000 mls @ 125 mls/hr IV .Q8H SYED Last Admin: 11/22/17 20:04 Dose: 125 mls/hr Ondansetron HCl (Zofran Inj) 4 mg IVP Q4H PRN PRN Reason: Nausea/Vomiting Last Admin: 11/23/17 05:54 Dose: 4 mg - Constitutional Appears: Other (some distress) - Head Exam Head Exam: ATRAUMATIC, NORMOCEPHALIC - Eye Exam Eye Exam: EOMI, Normal appearance - ENT Exam ENT Exam: Mucous Membranes Moist - Respiratory Exam Respiratory Exam: Clear to Ausculation Bilateral, NORMAL BREATHING PATTERN. absent: Accessory Muscle Use - Cardiovascular Exam Cardiovascular Exam: Tachycardia, +S1, +S2 - GI/Abdominal Exam GI & Abdominal Exam: Tenderness (ruq, positive murphys). absent: Guarding, Rebound - Extremities Exam Extremities Exam: Normal Inspection - Neurological Exam Neurological Exam: Alert, Awake, Oriented x3 - Psychiatric Exam Psychiatric exam: Normal Affect, Normal Mood - Skin Skin Exam: Dry, Intact, Normal Color, Warm Assessment and Plan - Assessment and Plan (Free Text) Assessment: 42 year old female with a past medical history of hypertension, intestinal metaplasia, and who presented with epigastric pain, nausea, NBNB vomiting on Thursday and was found to have a 2 cm stone in the neck of the gall bladder on abdominal US with no elevation in LFTs, fever, or dilation in the CBD. She is on empiric antibiotics, pending HIDA and MRI of the abdomen with MRCP to further evaluate the lymphadenopathy seen in abdomen and to rule out any underlying pancreatic or biliary lesions. Most likely the patient has cholecystitis and will require cholecystectomy, eventually. Diet, pain regiment , and activity as per surgery and primary. We will continue to follow the patient closely. <Aura Fall V - Last Filed: 11/25/17 22:40> Objective - Vital Signs/Intake and Output Vital Signs (last 24 hours): Temp Pulse Resp BP Pulse Ox 98.1 F 128 H 20 155/93 H 98 11/23/17 17:28 11/23/17 18:43 11/23/17 17:28 11/23/17 18:43 11/23/17 17:28 Intake and Output: 11/23/17 11/24/17 18:59 06:59 Intake Total 0 0 Balance 0 0 - Medications Medications: Current Medications Hydromorphone HCl (Dilaudid) 0.5 mg IVP Q4H PRN PRN Reason: Pain, moderate (4-7) Last Admin: 11/23/17 20:49 Dose: 0.5 mg Cefoxitin Sodium 1 gm/ Sodium (Chloride) 100 mls @ 100 mls/hr IV Q8H SYED PRN Reason: Protocol Stop: 11/24/17 06:31 Last Admin: 11/23/17 13:46 Dose: 100 mls/hr Metronidazole (Flagyl) 500 mg in 100 mls @ 100 mls/hr IVPB Q8 SYED PRN Reason: Protocol Stop: 11/24/17 14:01 Last Admin: 11/23/17 21:15 Dose: 100 mls/hr Lactated Ringer's (Lactated Ringer's) 1,000 mls @ 125 mls/hr IV .Q8H SYED Last Admin: 11/23/17 08:00 Dose: 125 mls/hr Lisinopril (Zestril) 10 mg PO DAILY SYED Last Admin: 11/23/17 10:36 Dose: 10 mg Loratadine (Claritin) 10 mg PO DAILY SYED Last Admin: 11/23/17 10:36 Dose: 10 mg Ondansetron HCl (Zofran Inj) 4 mg IVP Q4H PRN PRN Reason: Nausea/Vomiting Last Admin: 11/23/17 20:49 Dose: 4 mg Pantoprazole Sodium (Protonix Inj) 40 mg IVP Q12 [facility] Last Admin: 11/23/17 21:16 Dose: 40 mg - Labs Labs: 11/23/17 06:30 11/23/17 06:30 Attending/Attestation - Attestation I have personally seen and examined this patient.: Yes I have fully participated in the care of the patient.: Yes I have reviewed all pertinent clinical information, including history, physical exam and plan: Yes Notes (Text): This is an addendum to GI followup report dictated by the Brisket Puller. The patient was seen an that we need to change it here d examined earlier. Medical records, lab studies, imagings were reviewed. Last 24 hours events reviewed. Agreed with the above treatment plan as outlined in Brisket Puller 's notes with the addition of the following continue antibiotics Follow-up of MRI and HIDA scan History of Larson's continue PPI Increased WBC count is a concern Discussed with Dr. Sanderson 11/23/17 22:05 11/25/17 22:40
[2017-11-23 07:02] LABS: BASO # 0.01 K/mm3 (0.0-2.0); EOS # 0.1 (0.0-0.7); EOS % 0.3 % (1.5-5.0); GRAN # 19.33 (1.4-6.5); GRAN % 89.3 % (50.0-68.0); LYMPH # 1.1 (1.2-3.4); MEAN CELL VOLUME 90.4 fl (80.0-105.0); MEAN CORPUSCULAR HGB CONC 35.4 g/dl (31.0-37.0); MEAN PLATELET VOLUME 8.5 fl (7.0-11.0); MONO # 1.2 (0.1-0.6); MONO % 5.4 % (1.0-6.0); PLATELET COUNT 327 10^3/uL (120.0-450.0); RBC 4.16 10^6/uL (3.5-6.1); RED CELL DISTRIBUTION WIDTH 12.2 % (11.5-14.5); WHITE BLOOD COUNT 21.7 10^3/ul (4.5-11.0)
[2017-11-23 07:17] LABS: ALB/GLOB RATIO 1.2 (1.1-1.8); ALBUMIN 3.9 g/dL (3.0-4.8); ALT/SGPT 31 U/L (7-56); AST/SGOT 24 U/L (14-36); BLOOD UREA NITROGEN 5 mg/dL (7-21); CALCIUM 8.7 mg/dL (8.4-10.5); GFR AFRICAN-AMERICAN > 60; GFR NON-AFRICAN AMERICAN > 60
[2017-11-23 07:23] LABS: HEMOGLOBIN 13.3 g/dL (12.0-16.0)
[2017-11-23] MEDS: cefOXitin Sodium 1 GM in Sodium Chloride 0.9% 100 ML IV SCH ×4 (07:27→22:54)
--- NOTE | 2017-11-23 07:43 | CP.PCM.PN ---
<Celio Nieto - Last Filed: 11/23/17 07:48> Subjective - Date & Time of Evaluation Date of Evaluation: 11/23/17 Time of Evaluation: 06:45 - Subjective Subjective: General Surgery Progress Note for Dr. Sanderson 42 year old Thai female presenting with intermittent RUQ pain since June. Pt seen and examined at bedside this morning. No acute events reported overnight. Pt c/o mild RUQ pain this AM, decreased appetite and nausea, no vomiting. No other complaints noted at this time. Objective - Vital Signs/Intake and Output Vital Signs (last 24 hours): Temp Pulse Resp BP Pulse Ox 98.3 F 89 18 147/100 H 100 11/22/17 16:57 11/22/17 16:57 11/22/17 16:57 11/22/17 16:57 11/22/17 16:57 Intake and Output: 11/23/17 11/23/17 06:59 18:59 Intake Total 0 0 Balance 0 0 - Medications Medications: Current Medications Hydromorphone HCl (Dilaudid) 2 mg IVP Q4H PRN PRN Reason: Pain, severe (8-10) Last Admin: 11/23/17 06:00 Dose: 2 mg Cefoxitin Sodium 1 gm/ Sodium (Chloride) 100 mls @ 100 mls/hr IV Q8H SYED PRN Reason: Protocol Stop: 11/24/17 06:31 Last Admin: 11/23/17 07:30 Dose: 100 mls/hr Metronidazole (Flagyl) 500 mg in 100 mls @ 100 mls/hr IVPB Q8 SYED PRN Reason: Protocol Stop: 11/24/17 14:01 Last Admin: 11/23/17 05:29 Dose: 100 mls/hr Lactated Ringer's (Lactated Ringer's) 1,000 mls @ 125 mls/hr IV .Q8H SYED Last Admin: 11/22/17 20:04 Dose: 125 mls/hr Ondansetron HCl (Zofran Inj) 4 mg IVP Q4H PRN PRN Reason: Nausea/Vomiting Last Admin: 11/23/17 05:54 Dose: 4 mg - Labs Labs: 11/23/17 06:30 11/23/17 06:30 - Constitutional Appears: No Acute Distress - Head Exam Head Exam: NORMAL INSPECTION - ENT Exam ENT Exam: Mucous Membranes Moist, Normal Exam - Neck Exam Neck Exam: Normal Inspection - Respiratory Exam Respiratory Exam: Clear to Ausculation Bilateral, NORMAL BREATHING PATTERN - Cardiovascular Exam Cardiovascular Exam: REGULAR RHYTHM, +S1, +S2 - GI/Abdominal Exam GI & Abdominal Exam: Soft, Tenderness, Normal Bowel Sounds. absent: Distended, Guarding, Rebound Additional comments: Moderate tenderness to palpation RUQ - Extremities Exam Extremities Exam: Normal Inspection - Neurological Exam Neurological Exam: Alert, Awake, Oriented x3 - Psychiatric Exam Psychiatric exam: Normal Affect, Normal Mood - Skin Skin Exam: Dry, Intact, Normal Color, Warm Assessment and Plan - Assessment and Plan (Free Text) Assessment: 42 yo [place] female admitted for biliary colic vs. acute cholecystitis Plan: --possible OR candidate --Cont w/ antibiotics, per ID --cont w/ pain meds prn, IVF --f/u HIDA, pt to remain NPO --f/u am labs Celio Nieto PGY-1; Management as per Dr. Sanderson <Michael Sanderson - Last Filed: 11/24/17 09:14> Objective - Vital Signs/Intake and Output Vital Signs (last 24 hours): Temp Pulse Resp BP Pulse Ox 98.6 F 100 H 20 127/79 100 11/24/17 08:42 11/24/17 08:42 11/24/17 08:42 11/24/17 08:42 11/24/17 08:42 Intake and Output: 11/24/17 11/24/17 06:59 18:59 Intake Total 0 Balance 0 - Medications Medications: Current Medications Hydromorphone HCl (Dilaudid) 0.5 mg IVP Q4H PRN PRN Reason: Pain, moderate (4-7) Last Admin: 11/24/17 00:41 Dose: 0.5 mg Lactated Ringer's (Lactated Ringer's) 1,000 mls @ 125 mls/hr IV .Q8H SYED Last Admin: 11/23/17 08:00 Dose: 125 mls/hr Piperacillin Sod/Tazobactam Sod (Zosyn 3.375 In Ns 100ml) 100 mls @ 200 mls/hr IVPB Q6 SYED PRN Reason: Protocol Lisinopril (Zestril) 10 mg PO DAILY SYED Last Admin: 11/23/17 10:36 Dose: 10 mg Loratadine (Claritin) 10 mg PO DAILY [facility] Last Admin: 11/23/17 10:36 Dose: 10 mg Ondansetron HCl (Zofran Inj) 4 mg IVP Q4H PRN PRN Reason: Nausea/Vomiting Last Admin: 11/23/17 20:49 Dose: 4 mg Pantoprazole Sodium (Protonix Inj) 40 mg IVP Q12 [facility] Last Admin: 11/23/17 21:16 Dose: 40 mg - Labs Labs: 11/24/17 06:30 11/24/17 06:30 PT 16.9 SECONDS 11/24/17 06:30 INR 1.46 11/24/17 06:30 APTT 33.3 Seconds 11/24/17 06:30 Assessment and Plan - Assessment and Plan (Free Text) Assessment: OR Scheduled today-WBC 21k/HIDA Non-Viz
[2017-11-23] MEDS: Lactated Ringer's 1,000 ML IV SCH ×2 (08:00→10:37)
[2017-11-23 08:28] LABS: LYMPHOCYTE 2 % (22.0-35.0); MONOCYTE 5 % (1.0-6.0); NEUTROPHIL 93 % (50.0-70.0)
[2017-11-23 08:29] LABS: PLATELET ESTIMATE NORMAL (NORMAL)
[2017-11-23] MEDS: HYDROmorphone 0.5 mg/0.5 ml ISec IVP PRN ×3 (10:43→20:49)
--- NOTE | 2017-11-23 12:35 | PN ---
DATE: 11/23/2017 SUBJECTIVE: The patient is 42 years old, seen and examined. Still complained of right upper quadrant pain. Complained of nausea. No diarrhea. Yesterday had HIDA scan done, results not available. PHYSICAL EXAMINATION: VITAL SIGNS: The patient is afebrile, pulse 106, respirations 18, blood pressure 157/107. LUNGS: Bilateral fair airflow. No rhonchi or crackle. HEART: S1 and S2 audible. ABDOMEN: Soft. Right upper quadrant palpable discomfort. NEUROLOGICAL: She is awake, alert, oriented, communicative. EXTREMITIES: Bilateral leg, no edema. LABORATORY EXAM: WBC is 21.7, hemoglobin 13, hematocrit 37, platelet of 327. Chemistry: Sodium 136, potassium 4.6, chloride 99, CO2 of 23, BUN 5, creatinine 0.5, blood sugar of 106. LFTs are within normal limit. ASSESSMENT: 1. Acute cholecystitis. 2. Cholelithiasis. 3. Leukocytosis. 4. History of weight loss because of intolerance of fatty food. PLAN: We will continue on current IV antibiotic. She is on IV fluid. Follow up MRCP and HIDA scan. Possible surgical intervention either today or tomorrow. Betzaida Barth MD
--- NOTE | 2017-11-23 14:42 | CP.PCM.PCO ---
Physician Communication Note - Physician Communication Note Physician Communication Note: Physician Communication Note: Pt request cell- saver for OR Addendum Addendum: Patient has rastafari opposition to receiving blood products and requests a cell -saver for the OR. She is insisting on postponing the surgery until tomorrow so that cell-saver can be available. Discussed with Dr. Sanderson
[2017-11-23] MEDS ORDERED: Gadodiamide 287 MG/ML VIAL (15ML) IV ONE (15:51)
--- NOTE | 2017-11-23 16:43 | NM ---
Date of service: 11/23/2017 PROCEDURE: Nuclear Medicine Hepatobiliary Scan HISTORY: eval for cholecystitis COMPARISON: November 22, 2017. Abdominal ultrasound TECHNIQUE: 7.3 mCi of technetium 99m Mebrofenin was administered intravenously. Planar images of the abdomen were obtained at 5 min intervals to 60 mins. Delayed images were also obtained. FINDINGS: LIVER: Timely and homogenous uptake. COMMON BILE DUCT: identified at 15 mins. GALLBLADDER: Not identified at 4 hours. SMALL BOWEL: Identified at fifteen mins. IMPRESSION: Positive Hepatobiliary Scan. The cystic duct is occluded. Findings indicative of acute cholecystitis and consistent with findings on recent abdominal ultrasound.
--- NOTE | 2017-11-23 17:07 | MRI ---
Date of service: 11/23/2017 PROCEDURE: Magnetic Resonance Cholangiopancreatography HISTORY: Cholecystitis. Evaluate for choledocholithiasis. COMPARISON: Comparison is made to the previous ultrasound of the gallbladder dated 11/22/2017.. TECHNIQUE: Multiplanar, multisequence MR images of the abdomen were obtained, including heavily T2 weighted MRCP images of the biliary system. Rotating maximum intensity projection images of the biliary system were generated. FINDINGS: MRCP: The common bile duct is of a normal caliber. No evidence of choledocholithiasis. No intrahepatic biliary ductal dilatation. LIVER: Unremarkable. GALLBLADDER: The gallbladder is moderately distended contains large gallstones and surrounding with inflammatory changes and fluid consistent with acute cholecystitis. SPLEEN: Unremarkable. PANCREAS: Unremarkable. ADRENALS: Unremarkable. KIDNEYS: There is a cyst in the midpole of the right kidney measures 1.6 anteverted AORTA: No aneurysm. ASCITES: None. OTHER FINDINGS: Mildly dilated small bowel loops at the upper abdomen suspicious for bowel ileus. IMPRESSION: Cholelithiasis and findings consistent with acute cholecystitis. No evidence of choledocholithiasis. No evidence of intrahepatic or extrahepatic biliary ductal dilatation.
[2017-11-23] MEDS ORDERED: Metoprolol Succinate 50 mg XL Tab PO ONE (17:22)
[2017-11-24] MEDS: HYDROmorphone 0.5 mg/0.5 ml ISec IVP PRN ×3 (00:41→23:43)
[2017-11-24] MEDS: metroNIDAZOLE IV 500 mg/100 ml 500 MG/100 ML BAG IVPB SCH (05:11)
[2017-11-24] MEDS: cefOXitin Sodium 1 GM in Sodium Chloride 0.9% 100 ML IV SCH (06:10)
[2017-11-24 07:06] LABS: BASO # 0.01 K/mm3 (0.0-2.0); EOS % 0.1 % (1.5-5.0); GRAN # 26.85 (1.4-6.5); GRAN % 87.9 % (50.0-68.0); HEMOGLOBIN 13.5 g/dL (12.0-16.0); LYMPH # 1.7 (1.2-3.4); LYMPH % 5.7 % (22.0-35.0); MEAN CELL VOLUME 90.9 fl (80.0-105.0); MEAN CORPUSCULAR HEMOGLOBIN 32.5 pg (25.0-35.0); MEAN CORPUSCULAR HGB CONC 35.7 g/dl (31.0-37.0); MEAN PLATELET VOLUME 8.6 fl (7.0-11.0); MONO # 1.9 (0.1-0.6); MONO % 6.3 % (1.0-6.0); RBC 4.16 10^6/uL (3.5-6.1); RED CELL DISTRIBUTION WIDTH 12.5 % (11.5-14.5)
[2017-11-24 07:16] LABS: INR 1.46
[2017-11-24 07:27] LABS: ALB/GLOB RATIO 1.1 (1.1-1.8); ALBUMIN 3.6 g/dL (3.0-4.8); ALT/SGPT 19 U/L (7-56); AST/SGOT 18 U/L (14-36); BLOOD UREA NITROGEN 9 mg/dL (7-21); CALCIUM 9.1 mg/dL (8.4-10.5); GFR AFRICAN-AMERICAN > 60; GFR NON-AFRICAN AMERICAN > 60
[2017-11-24 07:42] LABS: WHITE BLOOD COUNT 30.6 10^3/ul (4.5-11.0)
--- NOTE | 2017-11-24 07:42 | CP.PCM.PN ---
<Jeana Martinez - Last Filed: 11/24/17 16:00> Subjective - Date & Time of Evaluation Date of Evaluation: 11/24/17 Time of Evaluation: 08:00 - Subjective Subjective: Jeana Martinez DO, PGY-2: GI Progress Note for Dr. Fall Patient was seen and examined at bedside. Patient reports no fever, diarrhea, nausea, or vomiting. She reports that the cell saver is going to be ready. Surgery is on the case. We discussed the findings of the MRCP and HIDA scan. Chart review indicates no adverse events overnight. Objective - Vital Signs/Intake and Output Vital Signs (last 24 hours): Temp Pulse Resp BP Pulse Ox 98.1 F 128 H 20 155/93 H 98 11/23/17 17:28 11/23/17 18:43 11/23/17 17:28 11/23/17 18:43 11/23/17 17:28 Intake and Output: 11/24/17 11/24/17 06:59 18:59 Intake Total 0 Balance 0 - Medications Medications: Current Medications Hydromorphone HCl (Dilaudid) 0.5 mg IVP Q4H PRN PRN Reason: Pain, moderate (4-7) Last Admin: 11/24/17 00:41 Dose: 0.5 mg Metronidazole (Flagyl) 500 mg in 100 mls @ 100 mls/hr IVPB Q8 [facility] PRN Reason: Protocol Stop: 11/24/17 14:01 Last Admin: 11/24/17 05:11 Dose: 100 mls/hr Lactated Ringer's (Lactated Ringer's) 1,000 mls @ 125 mls/hr IV .Q8H [facility] Last Admin: 11/23/17 08:00 Dose: 125 mls/hr Lisinopril (Zestril) 10 mg PO DAILY [facility] Last Admin: 11/23/17 10:36 Dose: 10 mg Loratadine (Claritin) 10 mg PO DAILY [facility] Last Admin: 11/23/17 10:36 Dose: 10 mg Ondansetron HCl (Zofran Inj) 4 mg IVP Q4H PRN PRN Reason: Nausea/Vomiting Last Admin: 11/23/17 20:49 Dose: 4 mg Pantoprazole Sodium (Protonix Inj) 40 mg IVP Q12 [facility] Last Admin: 11/23/17 21:16 Dose: 40 mg - Labs Labs: 11/24/17 06:30 11/24/17 06:30 PT 16.9 SECONDS 11/24/17 06:30 INR 1.46 11/24/17 06:30 APTT 33.3 Seconds 11/24/17 06:30 - Constitutional Appears: No Acute Distress - Head Exam Head Exam: ATRAUMATIC, NORMOCEPHALIC - Eye Exam Eye Exam: EOMI, Normal appearance - ENT Exam ENT Exam: Mucous Membranes Moist - Neck Exam Neck Exam: Normal Inspection - Respiratory Exam Respiratory Exam: Clear to Ausculation Bilateral, NORMAL BREATHING PATTERN. absent: Accessory Muscle Use - Cardiovascular Exam Cardiovascular Exam: Tachycardia, +S1, +S2 - GI/Abdominal Exam GI & Abdominal Exam: Tenderness (RUQ, positive Bardales's) - Extremities Exam Extremities Exam: Normal Inspection. absent: Calf Tenderness - Back Exam Back Exam: NORMAL INSPECTION. absent: CVA tenderness (L), CVA tenderness (R) - Neurological Exam Neurological Exam: Alert, Awake, Oriented x3 - Psychiatric Exam Psychiatric exam: Normal Affect, Normal Mood - Skin Skin Exam: Dry, Intact, Normal Color, Warm Assessment and Plan - Assessment and Plan (Free Text) Assessment: 42 year old female with a past medical history of hypertension, intestinal metaplasia, and who presented with epigastric pain, nausea, NBNB vomiting on Thursday and was found to have a 2 cm stone in the neck of the gall bladder on abdominal US with no elevation in LFTs, fever, or dilation in the CBD. She is on empiric antibiotics withher white count trending up. HIDA and MRCP re- demonstrate acute cholecystits with mildly dilated small bowel loops at the upper abdomen suspicious for bowel ileus. We recommend surgical removal of the gall bladder and further management per [facility] surgical team. As always, thank you for allowing us to participate in the care of this patient. Case was reviewed and discussed with attending physician, Dr. Fall <Aura Fall V - Last Filed: 11/25/17 22:38> Objective - Vital Signs/Intake and Output Vital Signs (last 24 hours): Temp Pulse Resp BP Pulse Ox 98.5 F 107 H 20 113/66 96 11/24/17 19:15 11/24/17 19:15 11/24/17 19:15 11/24/17 19:15 11/24/17 19:15 Intake and Output: 11/24/17 11/25/17 18:59 06:59 Intake Total 0 Balance 0 - Medications Medications: Current Medications Hydromorphone HCl (Dilaudid) 0.5 mg IVP Q4H PRN PRN Reason: Pain, moderate (4-7) Last Admin: 11/24/17 20:12 Dose: 0.5 mg Lactated Ringer's (Lactated Ringer's) 1,000 mls @ 150 mls/hr IV .Q6H40M [facility] Lisinopril (Zestril) 10 mg PO DAILY [facility] Last Admin: 11/24/17 09:25 Dose: 10 mg Loratadine (Claritin) 10 mg PO DAILY [facility] Last Admin: 11/24/17 09:24 Dose: 10 mg Ondansetron HCl (Zofran Inj) 4 mg IVP Q4H PRN PRN Reason: Nausea/Vomiting Last Admin: 11/23/17 20:49 Dose: 4 mg Ondansetron HCl (Zofran Inj) 4 mg IVP ONCE PRN PRN Reason: Nausea/Vomiting Pantoprazole Sodium (Protonix Inj) 40 mg IVP Q12 [facility] Last Admin: 11/24/17 21:50 Dose: 40 mg - Labs Labs: 11/24/17 20:05 11/24/17 06:30 PT 16.9 SECONDS 11/24/17 06:30 INR 1.46 11/24/17 06:30 APTT 33.3 Seconds 11/24/17 06:30 Attending/Attestation - Attestation I have personally seen and examined this patient.: Yes I have fully participated in the care of the patient.: Yes I have reviewed all pertinent clinical information, including history, physical exam and plan: Yes Notes (Text): This is an addendum to GI followup report dictated by the Certified Medication Technician. The patient was seen an that we need to change it here d examined earlier. Medical records, lab studies, imagings were reviewed. Last 24 hours events reviewed. Agreed with the above treatment plan as outlined in Certified Medication Technician 's notes with the addition of the following patient still has significant tenderness right upperquadrant area Acute cholecystitis planned OR Larson's esophagus questionable low-grade dysplasia. She would need repeat EGD after further treatment of reflux as an outpatient 11/24/17 22:44 11/25/17 22:36
--- NOTE | 2017-11-24 09:12 | CP.PCM.PCO ---
Physician Communication Note - Physician Communication Note Physician Communication Note: WBC 31.6/OR 12Noon scheduled w auto-transfuser/? OPEN NOW
[2017-11-24] MEDS ORDERED: Piperacillin/Tazobact 3.375 gm 100 ML IVPB STA (09:21)
[2017-11-24] MEDS ORDERED: Bupivacaine 0.5% Inj(30mL) ONE (10:10)
[2017-11-24] MEDS ORDERED: Iohexol 240 (50 ml) ONE (10:11)
[2017-11-24] MEDS ORDERED: Heparin 10,000 Units/ml ONE (11:11)
[2017-11-24] MEDS ORDERED: Propofol 10 mg/ml Inj (20 ML) ONE (11:47)
[2017-11-24] MEDS ORDERED: Rocuronium 10 mg/ml (5 ml) ONE ×2 (11:48→13:43)
[2017-11-24] MEDS ORDERED: Succinylcholine 200 mg/10 ml Inj IV ONE (11:48)
[2017-11-24] MEDS ORDERED: Desflurane Inhalation Anesthetic Liq (240 ml) ONE (11:54)
[2017-11-24] MEDS ORDERED: Midazolam 2 MG/2 ML VIAL ONE (12:00)
[2017-11-24] MEDS ORDERED: Piperacillin/Tazobact 3.375 gm 100 ML IVPB SCH ×2 (12:00→15:00)
--- NOTE | 2017-11-24 12:21 | PN ---
Copied To: Betzaida Barth MD Attending MD: Betzaida Barth MD. DATE: 11/24/2017 SUBJECTIVE: The patient is 42 years old, seen and examined, still has right upper quadrant pain. She states the pain comes back once the effect of narcotic is gone. Denies any nausea or vomiting. PHYSICAL EXAMINATION: VITAL SIGNS: Th patient is afebrile, pulse 120, respirations 20, blood pressure 144/84. LUNGS: Bilateral fair airflow. No rhonchi or crackle. HEART: S1 and S2 audible. Tachycardic. ABDOMEN: Soft. Right upper quadrant discomfort. NEUROLOGICAL: The patient is awake, alert, oriented, communicative. LABORATORY EXAM: WBC , hemoglobin 13, hematocrit 37, platelet 350. Chemistry: Sodium 135, potassium 4.2, chloride 102, CO2 of 22, BUN 9, creatinine 0.6, blood sugar of 99. Blood cultures were negative. ASSESSMENT: 1. Cholecystitis. 2. Cholelithiasis. 3. Hypertension. PLAN: The patient is scheduled for open cholecystectomy. Since the patient is Mandaeism, arrangement has to be made for autotransfusion. I will continue on metronidazole and add Zosyn and ID consult by Dr. Ruiz has been requested. Betzaida Barth MD
[2017-11-24] MEDS ORDERED: Phenylephrine 10 mg/ml Inj ONE (12:25)
[2017-11-24] MEDS ORDERED: Sevoflurane - Inhalation Anesthetic Liq (250 ml) ONE (12:32)
[2017-11-24] MEDS ORDERED: Esmolol 100 mg/10ml Inj IV ONE ×2 (12:38→14:59)
[2017-11-24] MEDS ORDERED: Bupivacaine 0.5% Inj(30mL) IJ ONE (13:03)
[2017-11-24] MEDS ORDERED: Neostigmine Methylsulfate 3mg/3ml Syringe IV ONE (14:52)
[2017-11-24] MEDS ORDERED: Bupivacaine Liposomal Inj 20 ml ONE (16:57)
[2017-11-24] MEDS ORDERED: HYDROmorphone 1 mg/ml ISec IVP PRN (17:40)
[2017-11-24] MEDS ORDERED: HYDROmorphone 0.5 mg/0.5 ml ISec ONE ×2 (17:44→17:45)
[2017-11-24] MEDS ORDERED: HYDROmorphone 0.5 mg/0.5 ml ISec IVP ONE (17:45)
[2017-11-24] MEDS ORDERED: Sodium Chloride 0.9% 1,000 ML IV SCH (17:45)
[2017-11-24] MEDS ORDERED: HYDROmorphone 1 mg/ml ISec IVP ONE ×2 (18:00→18:21)
[2017-11-24] MEDS ORDERED: HYDROmorphone 1 mg/ml ISec ONE ×2 (18:03→18:21)
--- NOTE | 2017-11-24 18:13 | PCM.SURG1 ---
Surgeon's Initial Post Op Note - Surgeon's Notes Surgeon: Dr. Sanderson Senior Windows Engineer: Dr. Mcmanus PGY-2, Dr. Larkin PGY-3 Type of Anesthesia: General Endo Anesthesia Administered By: Dr. Lucas Pre-Operative Diagnosis: Acute Cholecystitis Operative Findings: See operative report Post-Operative Diagnosis: Gangrenous Cholecystitis Operation Performed: Laparosocpic Cholecystectomy with IOC Specimen/Specimens Removed: Gallbladder Estimated Blood Loss: EBL {In ML}: 200 Blood Products Given: N/A Drains Used: Tomasz Post-Op Condition: Good Date of Surgery/Procedure: 11/24/17 Time of Surgery/Procedure: 18:12
[2017-11-24] MEDS ORDERED: Lactated Ringer's 1,000 ML IV SCH (18:19)
[2017-11-24 20:13] LABS: BASO # 0.03 K/mm3 (0.0-2.0); BASO % 0.1 % (0.0-3.0); GRAN # 22.35 (1.4-6.5); GRAN % 89.9 % (50.0-68.0); LYMPH % 4.2 % (22.0-35.0); MEAN CELL VOLUME 91.7 fl (80.0-105.0); MEAN CORPUSCULAR HGB CONC 34.9 g/dl (31.0-37.0); MEAN PLATELET VOLUME 8.3 fl (7.0-11.0); MONO # 1.5 (0.1-0.6); MONO % 5.8 % (1.0-6.0); RBC 3.75 10^6/uL (3.5-6.1); RED CELL DISTRIBUTION WIDTH 12.7 % (11.5-14.5); WHITE BLOOD COUNT 24.9 10^3/ul (4.5-11.0)
[2017-11-25 00:04] LABS: HEMOGLOBIN 11.9 g/dL (12.0-16.0); MEAN CELL VOLUME 91.6 fl (80.0-105.0); MEAN CORPUSCULAR HEMOGLOBIN 32.4 pg (25.0-35.0); MEAN CORPUSCULAR HGB CONC 35.4 g/dl (31.0-37.0); MEAN PLATELET VOLUME 8.3 fl (7.0-11.0); RBC 3.67 10^6/uL (3.5-6.1); RED CELL DISTRIBUTION WIDTH 12.5 % (11.5-14.5); WHITE BLOOD COUNT 22.2 10^3/ul (4.5-11.0)
[2017-11-25] MEDS: HYDROmorphone 0.5 mg/0.5 ml ISec IVP PRN (03:14)
[2017-11-25] MEDS ORDERED: Piperacillin/Tazobact 3.375 gm 100 ML IVPB STA (05:59)
[2017-11-25] MEDS ORDERED: Lactated Ringer's 1,000 ML IV SCH (06:15)
[2017-11-25] MEDS: Lactated Ringer's 1,000 ML IV SCH (06:37)
[2017-11-25 07:22] LABS: BASO # 0.02 K/mm3 (0.0-2.0); BASO % 0.1 % (0.0-3.0); EOS # 0.2 (0.0-0.7); GRAN # 13.89 (1.4-6.5); GRAN % 78.8 % (50.0-68.0); HEMOGLOBIN 11.6 g/dL (12.0-16.0); LYMPH # 2.3 (1.2-3.4); LYMPH % 12.8 % (22.0-35.0); MEAN CELL VOLUME 92.8 fl (80.0-105.0); MEAN CORPUSCULAR HEMOGLOBIN 32.2 pg (25.0-35.0); MEAN CORPUSCULAR HGB CONC 34.7 g/dl (31.0-37.0); MEAN PLATELET VOLUME 8.5 fl (7.0-11.0); MONO # 1.3 (0.1-0.6); MONO % 7.3 % (1.0-6.0); RBC 3.6 10^6/uL (3.5-6.1); RED CELL DISTRIBUTION WIDTH 12.7 % (11.5-14.5); WHITE BLOOD COUNT 17.6 10^3/ul (4.5-11.0)
[2017-11-25 07:45] LABS: ALBUMIN 2.9 g/dL (3.0-4.8); ALT/SGPT 37 U/L (7-56); AST/SGOT 59 U/L (14-36); BLOOD UREA NITROGEN 8 mg/dL (7-21); CALCIUM 8.4 mg/dL (8.4-10.5); GFR AFRICAN-AMERICAN > 60; GFR NON-AFRICAN AMERICAN > 60
[2017-11-25] MEDS: HYDROmorphone 1 mg/ml ISec IVP PRN ×4 (08:07→21:23)
--- NOTE | 2017-11-25 09:41 | RAD ---
Date of service: 11/24/2017 PROCEDURE: Cholangiogram operative HISTORY: ? CBD OBST COMPARISON: TECHNIQUE: 8.9 seconds of fluoro time. Cumulative dose 2.57 mGy. Four images submitted FINDINGS: There are no filling defects in the common duct. A small amount of contrast can be seen in the duodenum IMPRESSION: As above
--- NOTE | 2017-11-25 11:33 | CP.PCM.PN ---
<Jeana Martinez - Last Filed: 11/25/17 16:55> Subjective - Date & Time of Evaluation Date of Evaluation: 11/25/17 Time of Evaluation: 11:25 - Subjective Subjective: Jeana Martinez DO, PGY-2: GI Progress Note Patient was seen and examined at bedside. She reports some discomfort in the surgical site as well as some new-onset shortness of breath. CTA of the chest was performed given the patient had been persistently tachycardic and now short of breath. Objective - Vital Signs/Intake and Output Vital Signs (last 24 hours): Temp Pulse Resp BP Pulse Ox 98.5 F 101 H 20 154/100 H 99 11/25/17 06:05 11/25/17 09:25 11/25/17 06:05 11/25/17 09:25 11/25/17 06:05 Intake and Output: 11/25/17 11/25/17 06:59 18:59 Intake Total 1900 Output Total 1120 Balance 780 - Medications Medications: Current Medications Hydromorphone HCl (Dilaudid) 1 mg IVP Q3H PRN PRN Reason: Pain, severe (8-10) Last Admin: 11/25/17 08:07 Dose: 1 mg Lactated Ringer's (Lactated Ringer's) 1,000 mls @ 130 mls/hr IV .Q7H42M [facility] Last Admin: 11/25/17 06:37 Dose: 130 mls/hr Piperacillin Sod/Tazobactam Sod (Zosyn 3.375 In Ns 100ml) 100 mls @ 200 mls/hr IVPB Q6 [facility] PRN Reason: Protocol Stop: 12/04/17 12:01 Lisinopril (Zestril) 20 mg PO DAILY [facility] Loratadine (Claritin) 10 mg PO DAILY [facility] Last Admin: 11/25/17 09:25 Dose: 10 mg Ondansetron HCl (Zofran Inj) 4 mg IVP Q4H PRN PRN Reason: Nausea/Vomiting Last Admin: 11/23/17 20:49 Dose: 4 mg Pantoprazole Sodium (Protonix Inj) 40 mg IVP Q12 [facility] Last Admin: 11/25/17 09:25 Dose: 40 mg - Labs Labs: 11/25/17 07:00 08/01/18 07:00 PT 16.9 SECONDS 07/31/18 06:30 INR 1.46 11/24/17 06:30 APTT 33.3 Seconds 11/24/17 06:30 - Constitutional Appears: Well, Non-toxic - Head Exam Head Exam: ATRAUMATIC, NORMOCEPHALIC - Eye Exam Eye Exam: EOMI, Normal appearance - ENT Exam ENT Exam: Mucous Membranes Moist - Neck Exam Neck Exam: Normal Inspection - Respiratory Exam Respiratory Exam: Decreased Breath Sounds (right greater than left). absent: Accessory Muscle Use Additional comments: respiratory rate of 18 - Cardiovascular Exam Cardiovascular Exam: Tachycardia, +S1, +S2 - GI/Abdominal Exam GI & Abdominal Exam: Soft, Normal Bowel Sounds. absent: Guarding - Extremities Exam Extremities Exam: Normal Inspection. absent: Calf Tenderness - Neurological Exam Neurological Exam: Alert, Awake, Oriented x3 - Psychiatric Exam Psychiatric exam: Normal Affect, Normal Mood - Skin Skin Exam: Dry, Intact, Normal Color, Warm Assessment and Plan - Assessment and Plan (Free Text) Assessment: 42 year old female with a past medical history of hypertension and Krystian's esophagus, and who presented with epigastric pain, nausea, NBNB vomiting on Thursday and was found to have a 2 cm stone in the neck of the gall bladder on abdominal US with no elevation in LFTs, fever, or dilation in the CBD. She underwent laparascopic cholecystecomy and an intraoperative cholangiogram that showed gangrenous cholecystitis and no filling defects in the common bile duct, respectively. The patient's white blood cell count has come down from 30,000 to 17,000. CTA of the chest showed consolidation seen in the posterior right upper lobe and right lower lobe and a small effusion which extends into the major fissure, and linear atelectasis seen at the left lung base, and no pulmonary embolus. US of the bilateral lower extremities was negative for DVT. We discussed with the patient that she should follow up as an outpatient with Dr. Fall. As always, thank you for allowing us to participate in the care of you patient Case was reviewed and discussed with attending physician, Dr. Fall <Aura Fall V - Last Filed: 11/25/17 22:18> Objective - Vital Signs/Intake and Output Vital Signs (last 24 hours): Temp Pulse Resp BP Pulse Ox 98.3 F 127 H 20 139/96 H 96 08/01/18 17:58 11/25/17 17:58 11/25/17 17:58 11/25/17 17:58 11/25/17 17:58 Intake and Output: 11/25/17 11/26/17 18:59 06:59 Intake Total 2400 Output Total 950 Balance 1450 - Medications Medications: Current Medications Hydromorphone HCl (Dilaudid) 1 mg IVP Q3H PRN PRN Reason: Pain, severe (8-10) Last Admin: 11/25/17 21:23 Dose: 1 mg Lactated Ringer's (Lactated Ringer's) 1,000 mls @ 130 mls/hr IV .Q7H42M [facility] Last Admin: 11/25/17 06:37 Dose: 130 mls/hr Piperacillin Sod/Tazobactam Sod (Zosyn 3.375 In Ns 100ml) 100 mls @ 200 mls/hr IVPB Q6 [facility] PRN Reason: Protocol Stop: 12/04/17 12:01 Last Admin: 11/25/17 17:39 Dose: 200 mls/hr Vancomycin HCl (Vancomycin 1gm) 1 gm in 250 mls @ 167 mls/hr IVPB Q12H [facility] PRN Reason: Protocol Last Admin: 11/25/17 12:42 Dose: 167 mls/hr Lisinopril (Zestril) 20 mg PO DAILY [facility] Loratadine (Claritin) 10 mg PO DAILY [facility] Last Admin: 11/25/17 09:25 Dose: 10 mg Ondansetron HCl (Zofran Inj) 4 mg IVP Q4H PRN PRN Reason: Nausea/Vomiting Last Admin: 11/23/17 20:49 Dose: 4 mg Pantoprazole Sodium (Protonix Inj) 40 mg IVP Q12 [facility] Last Admin: 11/25/17 21:20 Dose: 40 mg - Labs Labs: 11/25/17 07:00 11/25/17 07:00 PT 16.9 SECONDS (9.4-12.5) 11/24/17 06:30 INR 1.46 11/24/17 06:30 APTT 33.3 Seconds (25.1-36.5) 11/24/17 06:30 Attending/Attestation - Attestation I have personally seen and examined this patient.: Yes I have fully participated in the care of the patient.: Yes I have reviewed all pertinent clinical information, including history, physical exam and plan: Yes Notes (Text): This is an addendum to GI followup report dictated by the Energy Assistant. The patient was seen an that we need to change it here d examined earlier. Medical records, lab studies, imagings were reviewed. Last 24 hours events reviewed. Agreed with the above treatment plan as outlined in Energy Assistant 's notes with the addition of the following patient was ambulating Feels better CT chest was reviewed LFT shows downward trend Ioc was negative Recommend 1. Needs outpatient follow-up for Larson's questionable history of lowgrade dysplasia. Continue Protonix 40 mg daily and elective repeat EGD to further evaluate Larson's 2. Status post cholecystectomy with IOC. IOC was negative for CBD stone. Follow-up LFT 3. Advance diet as per surgeon 11/25/17 22:
[2017-11-25] MEDS ORDERED: Piperacillin/Tazobact 3.375 gm 100 ML IVPB SCH (12:00)
[2017-11-25] MEDS ORDERED: Iohexol 350 MG/100 ML VIAL ONE (12:05)
[2017-11-25] MEDS: Vancomycin 1gm in NS 250ml 1 GM/250 ML BAG IVPB SCH ×2 (12:42→23:23)
--- NOTE | 2017-11-25 12:48 | CT ---
Date of service: 11/25/2017 PROCEDURE: CT Chest with contrast (Pulmonary Angiogram) HISTORY: r/o PE, SOB, tachy COMPARISON: None available. TECHNIQUE: Axial computed tomography images were obtained of the chest in the pulmonary arterial phase of enhancement. Coronal and sagittal reformatted images were created and reviewed. Intravenous contrast dose: 100 cc of Omni 350 Radiation dose: Total exam DLP = 415 mGy-cm. This CT exam was performed using one or more of the following dose reduction techniques: Automated exposure control, adjustment of the mA and/or kV according to patient size, and/or use of iterative reconstruction technique. FINDINGS: PULMONARY ARTERIES: Unremarkable. No pulmonary embolism. AORTA: No acute findings. No thoracic aortic aneurysm. LUNGS: Consolidation is seen in the posterior right upper lobe and right lower lobe. There is also a small effusion which extends into the major fissure. There is also linear atelectasis at the left lung base PLEURAL SPACES: Unremarkable. No effusion or pneumothorax. HEART: Unremarkable. No cardiomegaly. No significant pericardial effusion. LYMPH NODES: No lymphadenopathy. BONES, CHEST WALL: Unremarkable. No fracture or destructive lesion OTHER FINDINGS: Unremarkable. IMPRESSION: Consolidation is seen in the posterior right upper lobe and right lower lobe. There is also a small effusion which extends into the major fissure. There is also linear atelectasis at the left lung base No evidence of pulmonary embolus
[2017-11-25] MEDS: Piperacillin/Tazobact 3.375 gm 100 ML IVPB SCH ×3 (13:26→23:22)
--- NOTE | 2017-11-25 13:48 | CP.PCM.PN ---
Subjective - Date & Time of Evaluation Date of Evaluation: 11/25/17 Time of Evaluation: 08:00 - Subjective Subjective: Surgery: Dr. Sanderson Pt seen and examined. Overnight, pt with urinary retention & bladder scan with 575cc. Villalba placed with 700cc of UOP. This morning pt admits to post-op pain around the umbilicus and some SOB upon exertion. She denies N/V, fevers/chills, or chest pain. Objective - Vital Signs/Intake and Output Vital Signs (last 24 hours): Temp Pulse Resp BP Pulse Ox 98.5 F 101 H 20 154/100 H 99 11/25/17 06:05 11/25/17 09:25 11/25/17 06:05 11/25/17 09:25 11/25/17 06:05 Intake and Output: 11/25/17 11/25/17 06:59 18:59 Intake Total 1900 Output Total 1120 Balance 780 - Medications Medications: Current Medications Hydromorphone HCl (Dilaudid) 1 mg IVP Q3H PRN PRN Reason: Pain, severe (8-10) Last Admin: 11/25/17 12:41 Dose: 1 mg Lactated Ringer's (Lactated Ringer's) 1,000 mls @ 130 mls/hr IV .Q7H42M [facility] Last Admin: 11/25/17 06:37 Dose: 130 mls/hr Piperacillin Sod/Tazobactam Sod (Zosyn 3.375 In Ns 100ml) 100 mls @ 200 mls/hr IVPB Q6 [facility] PRN Reason: Protocol Stop: 12/04/17 12:01 Last Admin: 11/25/17 13:26 Dose: 200 mls/hr Vancomycin HCl (Vancomycin 1gm) 1 gm in 250 mls @ 167 mls/hr IVPB Q12H [facility] PRN Reason: Protocol Last Admin: 11/25/17 12:42 Dose: 167 mls/hr Lisinopril (Zestril) 20 mg PO DAILY [facility] Loratadine (Claritin) 10 mg PO DAILY [facility] Last Admin: 11/25/17 09:25 Dose: 10 mg Ondansetron HCl (Zofran Inj) 4 mg IVP Q4H PRN PRN Reason: Nausea/Vomiting Last Admin: 11/23/17 20:49 Dose: 4 mg Pantoprazole Sodium (Protonix Inj) 40 mg IVP Q12 [facility] Last Admin: 11/25/17 09:25 Dose: 40 mg - Labs Labs: 11/25/17 07:00 11/25/17 07:00 PT 16.9 SECONDS 11/24/17 06:30 INR 1.46 11/24/17 06:30 APTT 33.3 Seconds 11/24/17 06:30 - Constitutional Appears: Well, No Acute Distress - Head Exam Head Exam: ATRAUMATIC, NORMOCEPHALIC - Eye Exam Eye Exam: Normal appearance - ENT Exam ENT Exam: Mucous Membranes Moist - Respiratory Exam Additional comments: tachypneic - Cardiovascular Exam Cardiovascular Exam: Tachycardia - GI/Abdominal Exam GI & Abdominal Exam: Soft, Tenderness (around umbilical incision, clean,dry, intact with dermabond in place.Tomasz with serosang output ) - Extremities Exam Extremities Exam: absent: Pedal Edema, Tenderness - Neurological Exam Neurological Exam: Alert, Awake, Oriented x3 - Skin Skin Exam: Dry, Warm Assessment and Plan - Assessment and Plan (Free Text) Assessment: 42F s/p lap geovanny with IOC; POD#1 Plan: - CTA to r/o PE: negative - f/u US b/l LE - DC villalba - start CLD and will advance to reg if tolerating - cont IV ABX - H/H stable; will f/u level in AM & start DVT ppx - encourage incentive spirometer & ambulation - d/w Dr. Kin Larkin
--- NOTE | 2017-11-25 13:49 | PN ---
Copied To: Betzaida Barth MD Attending MD: Betzaida Barth MD DATE: 11/25/2017 SUBJECTIVE: The patient is 42 years old, seen and examined lying in bed, seems to be comfortable. Complained of pain upon moving, had difficulty getting out of bed. PHYSICAL EXAMINATION: VITAL SIGNS: She is afebrile, pulse 100, respirations 20, blood pressure 154/100. LUNGS: Bilateral fair airflow. No rhonchi or crackle. HEART: S1, S2 audible. ABDOMEN: Soft, palpable discomfort. NEUROLOGICAL: The patient is awake, alert, oriented, communicative. EXTREMITIES: Bilateral legs, no edema. DATA: MRCP that was done on 11/23 shows cholelithiasis and consistent with acute cholecystitis, no evidence of choledocholithiasis, slightly distended small bowel loops. ASSESSMENT: 1. Leukocytosis, improving. 2. Restoration. PLAN: The patient is currently on IV antibiotics. Analgesics as needed. Increase lisinopril to 20 daily, I will give her 10 mg 1 dose now. We will follow up the patient. Betzaida Barth MD
[2017-11-25 13:59] LABS: PROTHROMBIN TIME 16.9 SECONDS (9.4-12.5)
[2017-11-25 14:00] LABS: PARTIAL THROMBOPLASTIN TIME 33.3 Seconds (25.1-36.5)
--- NOTE | 2017-11-25 17:49 | US ---
HISTORY: Leg pain and swelling. Evaluate for DVT PHYSICIAN(S): Hansel Lema MD. TECHNIQUE: Duplex sonography and color-flow Doppler with graded compression were used to evaluate the deep venous systems of both lower extremities. FINDINGS: The visualized deep venous systems of both lower extremities are sonographically normal and compressible. Normal wave forms and augmentation are seen. There is no sonographic evidence for deep venous thrombosis in the visualized segments of both lower extremities. IMPRESSION: No sonographic evidence for deep venous thrombosis in the visualized segments of both lower extremities.
--- NOTE | 2017-11-25 21:45 | CON ---
Copied To: Jacob Ruiz MD Attending MD: Jacob Ruiz MD DATE: 11/25/2017 INDICATION: The patient was seen in room 378 this morning. She complained of weakness times several days. HISTORY OF PRESENT ILLNESS: This is a 42-year-old female with obesity with a BMI of 32 with past medical history significant for obesity and hypertension who was admitted with abdominal pain, found to have cholelithiasis and was taken to the OR. Status post laparoscopic cholecystectomy, postop day #1. Today, the patient is awake and alert. She has no nausea, no vomiting. She has no fevers, no chills, and no chest pain now. No headaches or blurred vision. PAST MEDICAL HISTORY: Significant for hypertension and obesity. Had recent endoscopy because of the abdominal pain. PAST SURGICAL HISTORY: Noncontributory. ALLERGIES: THE PATIENT HAS NO KNOWN ALLERGIES. HOME MEDICATIONS: No medications at home. PHYSICAL EXAMINATION GENERAL: The patient is in bed, answering questions appropriately. Her sister is in a chair next to her. VITAL SIGNS: The patient's temperature is 98, heart rate of 101, respiratory rate of 22, blood pressure is 111/60. HEENT: Examination of HEENT is unremarkable. NECK: Supple. LUNGS: Have decreased breath sounds. HEART: Normal S1, S2. ABDOMEN: Soft, nontender. LABORATORY DATA: Reveals the white count was 30,000 yesterday, down to 17,000 today, hemoglobin is 11, platelets are noted. The patient did have 89% granulocytosis. Coagulation is noted. BUN of 8, creatinine of 0.5. Microbiology reveals the blood cultures are negative. The patient had imaging including MRCP, results are noted. Had HIDA scan. ASSESSMENT AND PLAN: This is a 42-year-old obese female with hypertension, admitted with sepsis, status post laparoscopic cholecystectomy with acute cholecystitis, found to have gangrenous gallbladder by surgical note. We will treat the patient with Zosyn for now, follow the WBC count, and we will follow closely with you. Check on the final OR culture results. Jacob Ruiz MD [facility] # [id number]
[2017-11-26] MEDS ORDERED: Morphine 4 mg/ml ISec IVP PRN (03:55)
[2017-11-26] MEDS: Lactated Ringer's 1,000 ML IV SCH ×2 (05:25→10:18)
[2017-11-26] MEDS: Piperacillin/Tazobact 3.375 gm 100 ML IVPB SCH ×4 (05:25→23:39)
[2017-11-26 06:50] LABS: BASO # 0.02 K/mm3 (0.0-2.0); BASO % 0.1 % (0.0-3.0); EOS # 0.1 (0.0-0.7); GRAN # 12.77 (1.4-6.5); GRAN % 87.3 % (50.0-68.0); HEMOGLOBIN 12.3 g/dL (12.0-16.0); LYMPH % 6.8 % (22.0-35.0); MEAN CELL VOLUME 93.3 fl (80.0-105.0); MEAN CORPUSCULAR HEMOGLOBIN 31.5 pg (25.0-35.0); MEAN CORPUSCULAR HGB CONC 33.8 g/dl (31.0-37.0); MEAN PLATELET VOLUME 8.3 fl (7.0-11.0); MONO # 0.7 (0.1-0.6); MONO % 4.8 % (1.0-6.0); RBC 3.9 10^6/uL (3.5-6.1); RED CELL DISTRIBUTION WIDTH 12.7 % (11.5-14.5); WHITE BLOOD COUNT 14.6 10^3/ul (4.5-11.0)
[2017-11-26 07:22] LABS: ALBUMIN 3.2 g/dL (3.0-4.8); ALT/SGPT 39 U/L (7-56); AST/SGOT 41 U/L (14-36); BLOOD UREA NITROGEN 8 mg/dL (7-21); CALCIUM 8.6 mg/dL (8.4-10.5); GFR AFRICAN-AMERICAN > 60; GFR NON-AFRICAN AMERICAN > 60
--- NOTE | 2017-11-26 08:03 | CP.PCM.PN ---
Subjective - Date & Time of Evaluation Date of Evaluation: 11/26/17 Time of Evaluation: 06:26 - Subjective Subjective: General Surgery Note for Dr. Sanderson Patient seen and examined at bedside. No acute event overnight. Patient still admits to pain but states controlled with meds. Denies fever/chills or nausea/ vomiting. She is tolerating diet. SHe denies any BM or flatus. Patient has been persistently tachycardic. Cultures negative at 48 hrs. Kandis drain with 300cc of output over 24 hrs. Objective - Vital Signs/Intake and Output Vital Signs (last 24 hours): Temp Pulse Resp BP Pulse Ox 98.6 F 117 H 20 158/104 H 100 11/26/17 04:47 11/26/17 04:47 11/26/17 04:47 11/26/17 04:47 11/26/17 04:47 Intake and Output: 11/26/17 11/26/17 06:59 18:59 Intake Total 1760 Output Total 201 Balance 1559 - Medications Medications: Current Medications Docusate Sodium (Colace) 100 mg PO BID [facility] Stop: 11/29/17 23:59 Lactated Ringer's (Lactated Ringer's) 1,000 mls @ 130 mls/hr IV .Q7H42M [facility] Last Admin: 11/26/17 05:25 Dose: 130 mls/hr Piperacillin Sod/Tazobactam Sod (Zosyn 3.375 In Ns 100ml) 100 mls @ 200 mls/hr IVPB Q6 SYED PRN Reason: Protocol Stop: 12/04/17 12:01 Last Admin: 11/26/17 05:25 Dose: 200 mls/hr Vancomycin HCl (Vancomycin 1gm) 1 gm in 250 mls @ 167 mls/hr IVPB Q12H SYED PRN Reason: Protocol Last Admin: 11/25/17 23:23 Dose: 167 mls/hr Lisinopril (Zestril) 20 mg PO DAILY [facility] Loratadine (Claritin) 10 mg PO DAILY [facility] Last Admin: 11/25/17 09:25 Dose: 10 mg Morphine Sulfate (Morphine) 4 mg IVP Q4H PRN PRN Reason: Pain, moderate (4-7) Ondansetron HCl (Zofran Inj) 4 mg IVP Q4H PRN PRN Reason: Nausea/Vomiting Last Admin: 11/26/17 02:49 Dose: 4 mg Pantoprazole Sodium (Protonix Inj) 40 mg IVP Q12 [facility] Last Admin: 11/25/17 21:20 Dose: 40 mg - Labs Labs: 11/26/17 06:30 11/26/17 06:30 PT 16.9 SECONDS (9.4-12.5) 11/24/17 06:30 INR 1.46 11/24/17 06:30 APTT 33.3 Seconds (25.1-36.5) 11/24/17 06:30 - Constitutional Appears: No Acute Distress - Head Exam Head Exam: ATRAUMATIC, NORMOCEPHALIC - Eye Exam Eye Exam: Normal appearance - ENT Exam ENT Exam: Mucous Membranes Moist - Respiratory Exam Respiratory Exam: NORMAL BREATHING PATTERN - Cardiovascular Exam Cardiovascular Exam: Tachycardia - GI/Abdominal Exam GI & Abdominal Exam: Soft, Tenderness (surgical sites), Normal Bowel Sounds. absent: Distended, Firm, Guarding, Rigid, Rebound Additional comments: kandis drain with 300 ccc of serosanguinous output over 24 hrs - Neurological Exam Neurological Exam: Alert, Awake, Oriented x3 - Psychiatric Exam Psychiatric exam: Normal Affect, Normal Mood - Skin Skin Exam: Dry, Intact, Warm Assessment and Plan - Assessment and Plan (Free Text) Assessment: 42F s/p laparoscopic cholecystectomy with IOC POD#2 -HHD -IV antibiotics -Analgesics/Anti-emetics PRN -OOB/Ambulation/IS -Further recommnedations as per Dr. Kin Paul PGY2
[2017-11-26 11:00] LABS: AMYLASE 48 U/L (35-125); LIPASE 35 U/L (23-300)
[2017-11-26] MEDS ORDERED: diltiaZEM 120 mg/24 Hours CD Cap PO SCH (11:00)
[2017-11-26] MEDS ORDERED: Dextrose 5%/0.45% NS 1,000 ML IV SCH (11:00)
--- NOTE | 2017-11-26 11:04 | CP.PCM.PN ---
Subjective - Date & Time of Evaluation Date of Evaluation: 11/26/17 Time of Evaluation: 10:30 - Subjective Subjective: Nauseous-c/o too much pain Rx(1 mg Dilaudid) now MS 4mg C/S GB pending CT Chest mult consolidation areas Rx Xopenex-Acapella spirometer BP-Pulse elevation Rx Calcium channel dewey Stat amylase-[id number] Tomasz drainage) Starting Heparin SQ for DVT prophylaxis Geraldine Sanderson MD FACS Objective - Vital Signs/Intake and Output Vital Signs (last 24 hours): Temp Pulse Resp BP Pulse Ox 98.6 F 123 H 18 151/105 H 96 11/26/17 09:13 11/26/17 09:13 11/26/17 09:13 11/26/17 09:13 11/26/17 09:13 Intake and Output: 11/26/17 11/26/17 06:59 18:59 Intake Total 1760 Output Total 201 Balance 1559 - Medications Medications: Current Medications Diltiazem HCl (Cardizem Cd) 120 mg PO DAILY [facility] Docusate Sodium (Colace) 100 mg PO BID [facility] Stop: 11/29/17 23:59 Last Admin: 11/26/17 10:12 Dose: 100 mg Heparin Sodium (Porcine) (Heparin) 5,000 units SC Q12 SYED PRN Reason: Protocol Piperacillin Sod/Tazobactam Sod (Zosyn 3.375 In Ns 100ml) 100 mls @ 200 mls/hr IVPB Q6 SYED PRN Reason: Protocol Stop: 12/04/17 12:01 Last Admin: 11/26/17 05:25 Dose: 200 mls/hr Dextrose/Sodium Chloride (Dextrose 5%/0.45% Ns 1000 Ml) 1,000 mls @ 100 mls/hr IV .Q10H [facility] Levalbuterol HCl (Xopenex) 1.25 mg IH [id number] [facility] Lisinopril (Zestril) 20 mg PO DAILY [facility] Last Admin: 11/26/17 10:20 Dose: Not Given Loratadine (Claritin) 10 mg PO DAILY [facility] Last Admin: 11/26/17 10:13 Dose: 10 mg Morphine Sulfate (Morphine) 2 mg IVP Q4H PRN PRN Reason: Pain, moderate (4-7) Ondansetron HCl (Zofran Inj) 4 mg IVP Q4H PRN PRN Reason: Nausea/Vomiting Last Admin: 11/26/17 08:22 Dose: 4 mg Pantoprazole Sodium (Protonix Inj) 40 mg IVP Q12 [facility] Last Admin: 11/26/17 10:12 Dose: 40 mg - Labs Labs: 11/26/17 06:30 11/26/17 06:30 PT 16.9 SECONDS (9.4-12.5) 11/24/17 06:30 INR 1.46 11/24/17 06:30 APTT 33.3 Seconds (25.1-36.5) 11/24/17 06:30
[2017-11-26] MEDS: Morphine 2 mg/ml ISec IVP PRN ×3 (12:26→21:11)
[2017-11-26] MEDS: Potassium Ch 20mEq in D5-1/2NS 1,000 ML IV SCH ×2 (12:27→23:39)
--- NOTE | 2017-11-26 12:34 | CP.PCM.PCO ---
Physician Communication Note - Physician Communication Note Physician Communication Note: Dx Ileus-Pneumonitis:GB C/S Neg 48Hr/Momo cons Rx now
--- NOTE | 2017-11-26 14:40 | PN ---
Copied To: Jacob Ruiz MD Attending MD: Jacob Ruiz MD DATE: 11/26/2017 SUBJECTIVE: The patient is in bed, in no acute distress, nontoxic. PHYSICAL EXAMINATION: VITAL SIGNS: Temperature is 98, blood pressure is 158/100, respiratory rate of 20, heart rate of 117. HEENT: Unremarkable. NECK: Supple. LUNGS: Have decreased breath sounds. HEART: Normal S1, S2. ABDOMEN: Soft, nontender. LABORATORY DATA: Laboratory examination reveals a white count of 14,600, hemoglobin of 12, platelets of 407. BUN of 8, creatinine ____. Blood culture, one blood culture is positive for coagulase-negative staph. The other culture is no growth and review of the hematology reveals the patient's white count is down to 14,000. Review of the orders. The patient was empirically started on vancomycin yesterday because of her positive blood cultures and currently on Zosyn. The patient had a CAT scan of the chest yesterday. No evidence of PE, atelectasis is seen. ASSESSMENT AND PLAN: A 42-year-old female with obesity with body mass index of 32 and hypertension, admitted with sepsis, found to have acute cholecystitis, was taken to the operating room, status post laparoscopic cholecystectomy and found to have gangrenous gallbladder and today is day #2 of post surgery, on Zosyn, with leukocytosis that went from 30,000, is down to 14,000. She is having some nausea today, is of concern. We will follow closely with you thus far with one blood culture coagulase-negative staph was consistent with contamination, not requiring therapy. We will discontinue the vancomycin and keep the Zosyn for now, follow the nausea which is of concern and we will follow with you. Jacob Ruiz MD
[2017-11-26] MEDS: Levalbuterol 1.25 MG/3 ML Inhal Soln UD IH SCH ×2 (14:49→19:45)
--- NOTE | 2017-11-26 16:58 | OP ---
Copied To: Michael Sanderson MD Attending MD: Michael Sanderson MD PROCEDURE DATE: 11/24/2017 SURGEON: Michael Sanderson MD. MANAGER CAFE: Kristi Mcmanus DO, PGY-2. SECOND CLAIMS DIRECTOR: Brittany Larkin DO, PGY-3. THIRD CLAIMS DIRECTOR: Wandy Handy DO, PGY-2. ANESTHESIA: General endotracheal - Exparel - 20 mL. ANESTHESIOLOGIST: Evie Lucas MD. PREOPERATIVE DIAGNOSIS: Acute gangrenous cholecystitis. POSTOPERATIVE DIAGNOSIS: Acute gangrenous cholecystitis. PROCEDURE: A laparoscopic cholecystectomy with intraoperative cholangiography. 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 She has been seeing her reiki practitioner in [facility] [place] for the past several months and they have been spending this time working up some ovarian cysts or fibroid problem that is now considered benign. She has not been consulted with a surgeon and she has had extreme difficulty in eating with a 45-pound weight loss over this past period of time. During this admission, her white count has risen sequentially from 16,000 to 21,000, at which point the HIDA scan was obtained and demonstrated obstruction of the cystic duct and the patient was recommended for surgery. She absolutely refuses surgery and so the autotransfuser people could be available and she will not accept any blood transfusions because of her sabianism (Anabaptist). The patient had an MRCP ordered by the GI art sales consultant because of the weight loss and the possible presence of a lymph node in the noble hepatis and this was interpreted as normal as well. On the morning of 11/24/2017, her white count is up to 30.6 and she is demonstrating a rising pulse over 100 and a rising blood pressure with the diastolics of 100 as well. At this point, the patient is amenable to surgery and the autotransfuser people are present and the patient is brought to the operating room at this point. OPERATIVE NOTE: The patient is brought from the holding area to the operating room. She is identified by her wristband and undergoes time-out procedure. Following this, she is placed on the operating table in a supine manner and undergoes the induction of general anesthesia with the insertion of an endotracheal tube. The umbilicus is elevated on towel clips following Hibiclens preparation and aseptic draping. The area above the umbilicus is infiltrated and the Veress needle inserted into the peritoneal cavity and the abdomen insufflated to 40 mmHg and then the needle is removed and replaced with an 11 mm Visi-Port. A Storz operating scope is inserted. The abdomen is explored. The ovaries cannot be visualized at this point unfortunately. There is extremely dense omental inflammatory reaction to the right upper quadrant and a 5-mm port is placed in the right subxiphoid location and the omentum is retracted down from its fibrinopurulent adherence to the gallbladder. The gallbladder is visualized and found to be gangrenous and surprisingly very thick-walled at this point. The initial plan for this was the procedure could not be done laparoscopically and blood could not be controlled, the procedure would be converted to an open laparotomy. The resident staff present at this time appealed to the surgeon to continue the procedure and the 5-mm port is replaced in the subxiphoid location with an 11-mm port and two more 5 mm ports are placed in the right upper quadrant at the level of the umbilicus on the right side. The patient is rotated to a reverse Trendelenburg position in a left lateral position and the gallbladder is aspirated of approximately 50 mL of black turbid purulent material, which is cultured aerobically and anaerobically and sent to the laboratory at this point. A prestige clamp is placed over the site and further omentum is pushed down with blunt dissection and meticulous hemostatic control. The fundus of the gallbladder is grasped with another prestige clamp and with a very careful and patient dissection at this point taking over 2 hours, the cystic artery and the cystic duct are delineated and completely identified demonstrating the critical view of safety at this point. Double Hemoclips are placed over the cystic duct. The cystic duct is then incised and the cholangiogram catheter is inserted and the intraoperative cholangiography demonstrates contrast throughout the biliary tree without stone or obstruction exiting easily into the duodenum. The catheter is now removed and the cystic duct is triply Hemoclipped and then transected above the clips and the cystic artery is likewise doubly Hemoclipped and then transected between the same. The gallbladder is now removed from the liver bed in a prograde fashion utilizing meticulous electrocoagulating cautery current and once the gallbladder is removed and hemostasis is confirmed, the gallbladder is placed in an EndoCatch and brought up through the umbilical port site. The stones present in the gallbladder at this point are approximately 2-1/2 inches in diameter total and the 1-cm incision does not stretch enough to allow it to pass through and the skin incision and fascia are enlarged and the EndoCatch with its contained gallbladder and stones is brought out from the abdominal cavity. The gallbladder is opened off the operative field demonstrating intact gallbladder wall with a gangrenous anterior surface and 2 very large mulberry seed stones, each approximately 1 inch in size. The midline umbilical incision is now closed with interrupted [id number] PDS suture and the hemostasis is contained from that. The right upper quadrant now is lavaged with 3 L of normal saline until the return is entirely clear and a Tomasz 15-Nauruan drain is inserted into the peritoneal cavity and advanced up to the hepatorenal space of [place]. The drain is secured to the skin with a 2-0 Ethibond suture and the subxiphoid port is also closed now with the 2-0 PDS suture and the skin is closed with subcuticular absorbable 3-0 suture and Dermabond adhesive. A dry dressing is now placed over the drain site and the patient has slowly been awakened and a single catheterized specimen of urine is obtained demonstrating 200 mL of fluid from the entire procedure. It is quite dark and clear and the catheter has been removed. The patient is awakened, extubated and transported to the recovery room in a satisfactory condition. Sponge, instrument and suture count were verified as correct at the end of the procedure. Estimated blood loss during this procedure was less than 200 mL of blood. The autotransfuser was not utilized during the procedure, but was kept on standby throughout the entire procedure. The surgical assistants were present throughout the procedure from beginning to end and were extremely helpful in the exposure and the dissection enrolled throughout. This dictation will be electronically signed without being read. Michael Sanderson MD
--- NOTE | 2017-11-26 18:10 | PN ---
Copied To: Betzaida Barth MD Attending MD: Betzaida Barth MD DATE: 11/26/2017 SUBJECTIVE: The patient is 42 years old, seen and examined, complained of feeling nauseous since last night, did not vomit, complained of pain, complained of shortness of breath. States she does not feel well today. PHYSICAL EXAMINATION: GENERAL: She is awake, alert, oriented, and able to communicate. Mild shortness of breath. VITAL SIGNS: She is afebrile, pulse 123, respirations 18, blood pressure 164/111. LUNGS: Bilateral fair airflow. No rhonchi or crackle. HEART: S1, S2 audible. ABDOMEN: Soft, palpable discomfort in the right upper quadrant surgical site. NEUROLOGIC: She is awake, alert, oriented, and communicative. LABORATORY EXAM: WBC 14.6, hemoglobin 12.3, hematocrit 36.4, and platelets 407. Chemistry: Sodium 143, potassium 3.7, chloride 105, CO2 of 26. BUN 8, creatinine 0.8. Blood sugar of 110, LFTs are within normal limit. One blood culture came out positive for cocci in clusters on culture of 11/22. Otherwise, wound culture no growth after 24 hours. Had leg Doppler done, no DVT. CT scan of the chest shows consolidation in the posterior right upper lobe and the right lower lobe, small effusion which extended into the median fissures with linear atelectasis, no evidence of pulmonary embolus. ASSESSMENT: 1. Status post cholecystectomy. 2. Hypertension. 3. Sinus tachycardia. PLAN: I will start her on nebulizer treatment that is Xopenex. We will start her on diltiazem. She is on DVT prophylaxis. I will continue her on Zosyn and continue incentive spirometry, out of bed to chair, encouraged ambulation. Continue her IV fluids from Lactated Ringer to D5W with potassium until her oral intake improves. Betzaida Barth MD
--- NOTE | 2017-11-26 18:14 | CP.PCM.PN ---
<Jeana Martinez - Last Filed: 11/26/17 18:13> Subjective - Date & Time of Evaluation Date of Evaluation: 11/26/17 Time of Evaluation: 07:00 - Subjective Subjective: Jeana Martinez DO, PGY-2: GI Progress Note Patient seen and examined at bedside. Patient reports Objective - Vital Signs/Intake and Output Vital Signs (last 24 hours): Temp Pulse Resp BP Pulse Ox 98.6 F 114 H 18 157/88 H 96 11/26/17 09:13 11/26/17 13:46 11/26/17 09:13 11/26/17 13:46 11/26/17 09:13 Intake and Output: 11/26/17 11/26/17 06:59 18:59 Intake Total 1760 Output Total 201 Balance 1559 - Medications Medications: Current Medications Diltiazem HCl (Cardizem Cd) 120 mg PO DAILY [facility] Last Admin: 11/26/17 11:02 Dose: 120 mg Docusate Sodium (Colace) 100 mg PO BID [facility] Stop: 11/29/17 23:59 Last Admin: 11/26/17 17:37 Dose: 100 mg Heparin Sodium (Porcine) (Heparin) 5,000 units SC Q12 SYED PRN Reason: Protocol Last Admin: 11/26/17 11:06 Dose: 5,000 units Piperacillin Sod/Tazobactam Sod (Zosyn 3.375 In Ns 100ml) 100 mls @ 200 mls/hr IVPB Q6 SYED PRN Reason: Protocol Stop: 12/04/17 12:01 Last Admin: 11/26/17 17:38 Dose: 200 mls/hr Potassium Chloride/Dextrose/Sod Cl (Potassium Chl 20 Meq In D5-1/2ns) 1,000 mls @ 100 mls/hr IV .Q10H [facility] Last Admin: 11/26/17 12:27 Dose: 100 mls/hr Levalbuterol HCl (Xopenex) 1.25 mg IH [id number] [facility] Last Admin: 11/26/17 14:49 Dose: 1.25 mg Lisinopril (Zestril) 20 mg PO DAILY [facility] Last Admin: 11/26/17 10:20 Dose: Not Given Loratadine (Claritin) 10 mg PO DAILY [facility] Last Admin: 08/02/18 10:13 Dose: 10 mg Morphine Sulfate (Morphine) 2 mg IVP Q4H PRN PRN Reason: Pain, moderate (4-7) Last Admin: 11/26/17 16:23 Dose: 2 mg Ondansetron HCl (Zofran Inj) 4 mg IVP Q4H PRN PRN Reason: Nausea/Vomiting Last Admin: 11/26/17 16:23 Dose: 4 mg Pantoprazole Sodium (Protonix Inj) 40 mg IVP Q12 [facility] Last Admin: 11/26/17 10:12 Dose: 40 mg - Labs Labs: 11/26/17 06:30 11/26/17 06:30 PT 16.9 SECONDS (9.4-12.5) 11/24/17 06:30 INR 1.46 11/24/17 06:30 APTT 33.3 Seconds (25.1-36.5) 11/24/17 06:30 <Aura Fall V - Last Filed: 11/26/17 23:46> Objective - Vital Signs/Intake and Output Vital Signs (last 24 hours): Temp Pulse Resp BP Pulse Ox 98.2 F 117 H 19 145/96 H 96 11/26/17 18:00 11/26/17 18:00 11/26/17 18:00 11/26/17 18:00 11/26/17 18:00 Intake and Output: 11/26/17 11/27/17 18:59 06:59 Intake Total 1520 Output Total 870 Balance 650 - Medications Medications: Current Medications Clonidine HCl (Catapres) 0.1 mg PO TID PRN PRN Reason: bp>.150 Diltiazem HCl (Cardizem Cd) 180 mg PO DAILY [facility] Docusate Sodium (Colace) 100 mg PO BID [facility] Stop: 11/29/17 23:59 Last Admin: 11/26/17 17:37 Dose: 100 mg Heparin Sodium (Porcine) (Heparin) 5,000 units SC Q12 [facility] PRN Reason: Protocol Last Admin: 11/26/17 21:10 Dose: 5,000 units Piperacillin Sod/Tazobactam Sod (Zosyn 3.375 In Ns 100ml) 100 mls @ 200 mls/hr IVPB Q6 SYED PRN Reason: Protocol Stop: 12/04/17 12:01 Last Admin: 11/26/17 23:39 Dose: 200 mls/hr Potassium Chloride/Dextrose/Sod Cl (Potassium Chl 20 Meq In D5-1/2ns) 1,000 mls @ 100 mls/hr IV .Q10H [facility] Last Admin: 11/26/17 23:39 Dose: 100 mls/hr Levalbuterol HCl (Xopenex) 1.25 mg IH [id number] [facility] Last Admin: 11/26/17 19:45 Dose: 1.25 mg Lisinopril (Zestril) 20 mg PO DAILY [facility] Last Admin: 11/26/17 10:20 Dose: 20 mg Loratadine (Claritin) 10 mg PO DAILY [facility] Last Admin: 11/26/17 10:13 Dose: 10 mg Morphine Sulfate (Morphine) 2 mg IVP Q4H PRN PRN Reason: Pain, moderate (4-7) Last Admin: 11/26/17 21:11 Dose: 2 mg Ondansetron HCl (Zofran Inj) 4 mg IVP Q4H PRN PRN Reason: Nausea/Vomiting Last Admin: 11/26/17 16:23 Dose: 4 mg Pantoprazole Sodium (Protonix Inj) 40 mg IVP Q12 [facility] Last Admin: 11/26/17 21:11 Dose: 40 mg - Labs Labs: 11/26/17 06:30 11/26/17 06:30 PT 16.9 SECONDS (9.4-12.5) 11/24/17 06:30 INR 1.46 11/24/17 06:30 APTT 33.3 Seconds (25.1-36.5) 11/24/17 06:30 Attending/Attestation - Attestation I have personally seen and examined this patient.: Yes I have fully participated in the care of the patient.: Yes I have reviewed all pertinent clinical information, including history, physical exam and plan: Yes Notes (Text): This is an addendum to GI progress report dictated by the Resolution Manager.The patient was seen and examined earlier. Medical records, lab studies, imagings were reviewed. Last 24 hours events reviewed. Agreed with the above treatment plan as outlined in Resolution Manager 's notes with the addition of the following complaints of nausea after she received diladudid Larson's esophagus on PPI Continue antibiotics. Status post cholecystectomy for gangrenous gallbladder Postop as per surgery 11/26/17 23:43
[2017-11-27] MEDS: Levalbuterol 1.25 MG/3 ML Inhal Soln UD IH SCH ×4 (01:53→20:33)
[2017-11-27] MEDS: Morphine 2 mg/ml ISec IVP PRN (05:01)
[2017-11-27] MEDS: Piperacillin/Tazobact 3.375 gm 100 ML IVPB SCH ×3 (05:01→17:37)
[2017-11-27] MEDS ORDERED: Iohexol 350 MG/100 ML VIAL ONE (07:46)
[2017-11-27 07:59] LABS: BASO # 0.03 K/mm3 (0.0-2.0); BASO % 0.3 % (0.0-3.0); EOS # 0.2 (0.0-0.7); GRAN # 6.84 (1.4-6.5); GRAN % 67.8 % (50.0-68.0); LYMPH # 2.5 (1.2-3.4); LYMPH % 24.6 % (22.0-35.0); MEAN CELL VOLUME 93.7 fl (80.0-105.0); MEAN CORPUSCULAR HEMOGLOBIN 31.7 pg (25.0-35.0); MEAN CORPUSCULAR HGB CONC 33.8 g/dl (31.0-37.0); MEAN PLATELET VOLUME 8.1 fl (7.0-11.0); MONO # 0.5 (0.1-0.6); MONO % 5.3 % (1.0-6.0); RBC 3.47 10^6/uL (3.5-6.1); RED CELL DISTRIBUTION WIDTH 12.6 % (11.5-14.5); WHITE BLOOD COUNT 10.1 10^3/ul (4.5-11.0)
[2017-11-27 08:03] VITALS: RESP 20
[2017-11-27 08:12] LABS: ALBUMIN 2.9 g/dL (3.0-4.8); ALT/SGPT 29 U/L (7-56); AMYLASE 43 U/L (35-125); AST/SGOT 25 U/L (14-36); BLOOD UREA NITROGEN 6 mg/dL (7-21); CALCIUM 8.3 mg/dL (8.4-10.5); GFR AFRICAN-AMERICAN > 60; GFR NON-AFRICAN AMERICAN > 60
--- NOTE | 2017-11-27 08:17 | CP.PCM.PN ---
<Jeana Martinez - Last Filed: 11/27/17 19:43> Subjective - Date & Time of Evaluation Date of Evaluation: 11/27/17 Time of Evaluation: 07:40 - Subjective Subjective: Jeana Martinez DO PGY-2: GI Progress Note for Dr. Fall Patient was seen and examined at bedside. She reports not tolerating her diet well, but has decreased pain and is ambulating fine. She denies fever, chills, nausea, or vomiting. She reports her dyspnea has improved with the breathing treatments. Otherwise, chart review indicates no adverse events overnight. Objective - Vital Signs/Intake and Output Vital Signs (last 24 hours): Temp Pulse Resp BP Pulse Ox 98.9 F 96 H 20 135/92 H 99 11/27/17 08:02 11/27/17 08:02 11/27/17 08:02 11/27/17 08:02 11/27/17 08:02 Intake and Output: 11/27/17 11/27/17 06:59 18:59 Intake Total 1280 Output Total 1955 Balance -675 - Medications Medications: Current Medications Clonidine HCl (Catapres) 0.1 mg PO TID PRN PRN Reason: bp>.150 Diltiazem HCl (Cardizem Cd) 180 mg PO DAILY [facility] Docusate Sodium (Colace) 100 mg PO BID [facility] Stop: 11/29/17 23:59 Last Admin: 11/26/17 17:37 Dose: 100 mg Heparin Sodium (Porcine) (Heparin) 5,000 units SC Q12 [facility] PRN Reason: Protocol Last Admin: 11/26/17 21:10 Dose: 5,000 units Piperacillin Sod/Tazobactam Sod (Zosyn 3.375 In Ns 100ml) 100 mls @ 200 mls/hr IVPB Q6 [facility]ED PRN Reason: Protocol Stop: 12/04/17 12:01 Last Admin: 11/27/17 05:01 Dose: 200 mls/hr Potassium Chloride/Dextrose/Sod Cl (Potassium Chl 20 Meq In D5-1/2ns) 1,000 mls @ 100 mls/hr IV .Q10H [facility] Last Admin: 11/26/17 23:39 Dose: 100 mls/hr Levalbuterol HCl (Xopenex) 1.25 mg IH [id number] [facility] Last Admin: 11/27/17 01:53 Dose: 1.25 mg Lisinopril (Zestril) 20 mg PO DAILY [facility] Last Admin: 11/26/17 10:20 Dose: 20 mg Loratadine (Claritin) 10 mg PO DAILY [facility] Last Admin: 11/26/17 10:13 Dose: 10 mg Morphine Sulfate (Morphine) 2 mg IVP Q4H PRN PRN Reason: Pain, moderate (4-7) Last Admin: 11/27/17 05:01 Dose: 2 mg Ondansetron HCl (Zofran Inj) 4 mg IVP Q4H PRN PRN Reason: Nausea/Vomiting Last Admin: 11/27/17 05:01 Dose: 4 mg Pantoprazole Sodium (Protonix Inj) 40 mg IVP Q12 [facility] Last Admin: 11/26/17 21:11 Dose: 40 mg - Labs Labs: 11/27/17 07:50 11/27/17 07:50 PT 16.9 SECONDS (9.4-12.5) 11/24/17 06:30 INR 1.46 11/24/17 06:30 APTT 33.3 Seconds (25.1-36.5) 11/24/17 06:30 - Constitutional Appears: Well, Non-toxic - Head Exam Head Exam: ATRAUMATIC, NORMOCEPHALIC - Eye Exam Eye Exam: EOMI, Normal appearance. absent: Scleral icterus - ENT Exam ENT Exam: Mucous Membranes Moist - Neck Exam Neck Exam: Normal Inspection - Respiratory Exam Respiratory Exam: Decreased Breath Sounds (right lung base), NORMAL BREATHING PATTERN - Cardiovascular Exam Cardiovascular Exam: RRR, +S1, +S2 - GI/Abdominal Exam GI & Abdominal Exam: Tenderness (in upper abdomen). absent: Guarding, Rebound Additional comments: TARIQ drain present and draining serosanguinous fluid - Extremities Exam Extremities Exam: Pedal Edema. absent: Calf Tenderness - Neurological Exam Neurological Exam: Alert, Awake, Oriented x3 - Psychiatric Exam Psychiatric exam: Normal Affect, Normal Mood - Skin Skin Exam: Dry, Intact, Normal Color, Warm Assessment and Plan - Assessment and Plan (Free Text) Assessment: 42 year old female with a past medical history of hypertension and Krystian's esophagus, and who presented with epigastric pain, nausea, NBNB vomiting on Thursday and was found to have a 2 cm stone in the neck of the gall bladder on abdominal US with no elevation in LFTs, fever, or dilation in the CBD. She underwent laparascopic cholecystecomy and an intraoperative cholangiogram that showed gangrenous cholecystitis and no filling defects in the common bile duct, respectively. The patient's white blood cell count has come down from 30,000 to 17,000. CTA of the chest showed consolidation seen in the posterior right upper lobe and right lower lobe and a small effusion which extends into the major fissure, and linear atelectasis seen at the left lung base, and no pulmonary embolus. US of the bilateral lower extremities was negative for DVT. CT of the abdomen and pelvis performed today showed partial obstruction with mildly dilated loops of small bowel. Patient was advised to follow-up for Larson's esophagus and a questionable history of lowgrade dysplasia. She can continue with her Protonix 40 mg once a day. Case was reviewed and discussed with attending physician, Dr. Fall <Aura Fall V - Last Filed: 11/27/17 22:27> Objective - Vital Signs/Intake and Output Vital Signs (last 24 hours): Temp Pulse Resp BP Pulse Ox 97.8 F 107 H 20 148/96 H 96 11/27/17 18:21 11/27/17 18:21 11/27/17 18:21 11/27/17 18:21 11/27/17 18:21 Intake and Output: 11/27/17 11/28/17 18:59 06:59 Intake Total 200 Output Total 2420 Balance -2220 - Medications Medications: Current Medications Clonidine HCl (Catapres) 0.1 mg PO TID PRN PRN Reason: bp>.150 Diltiazem HCl (Cardizem Cd) 180 mg PO DAILY [facility] Last Admin: 11/27/17 10:31 Dose: 180 mg Docusate Sodium (Colace) 100 mg PO BID [facility] Stop: 11/29/17 23:59 Last Admin: 11/27/17 17:33 Dose: 100 mg Heparin Sodium (Porcine) (Heparin) 5,000 units SC Q12 [facility] PRN Reason: Protocol Last Admin: 11/27/17 22:05 Dose: 5,000 units Piperacillin Sod/Tazobactam Sod (Zosyn 3.375 In Ns 100ml) 100 mls @ 200 mls/hr IVPB Q6 [facility] PRN Reason: Protocol Stop: 12/04/17 12:01 Last Admin: 11/27/17 17:37 Dose: 200 mls/hr Levalbuterol HCl (Xopenex) 1.25 mg IH [id number] [facility] Last Admin: 11/27/17 20:33 Dose: 1.25 mg Lisinopril (Zestril) 20 mg PO DAILY [facility] Last Admin: 11/27/17 10:32 Dose: 20 mg Loratadine (Claritin) 10 mg PO DAILY [facility] Last Admin: 11/27/17 10:31 Dose: 10 mg Ondansetron HCl (Zofran Inj) 4 mg IVP Q4H PRN PRN Reason: Nausea/Vomiting Last Admin: 11/27/17 05:01 Dose: 4 mg Oxycodone/Acetaminophen (Percocet 5/325 Mg Tab) 1 tab PO Q4H PRN PRN Reason: Pain, moderate (4-7) Stop: 11/30/17 12:02 Last Admin: 11/27/17 15:36 Dose: 1 tab Pantoprazole Sodium (Protonix Inj) 40 mg IVP Q12 [facility] Last Admin: 11/27/17 22:06 Dose: 40 mg Potassium Chloride (K-Dur 20 Meq Er Tab) 20 meq PO BRK [facility] Last Admin: 11/27/17 09:03 Dose: 20 meq - Labs Labs: 11/27/17 07:50 11/27/17 07:50 PT 16.9 SECONDS (9.4-12.5) 11/24/17 06:30 INR 1.46 11/24/17 06:30 APTT 33.3 Seconds (25.1-36.5) 11/24/17 06:30 Attending/Attestation - Attestation I have personally seen and examined this patient.: Yes I have fully participated in the care of the patient.: Yes I have reviewed all pertinent clinical information, including history, physical exam and plan: Yes Notes (Text): This is an addendum to GI progress report dictated by the Office Mover.The patient was seen and examined earlier. Medical records, lab studies, imagings were reviewed. Last 24 hours events reviewed. Agreed with the above treatment plan as outlined in Office Mover 's notes with the addition of the following patient is feeling slightly better Tolerating diet On examination abdomen soft bowel sounds normal Follow-up LFT Continue antibiotics Status post cholecystectomy for gangrenouallbladder, varices on PPI 11/27/17 22:25
--- NOTE | 2017-11-27 08:50 | CP.PCM.PN ---
Subjective - Date & Time of Evaluation Date of Evaluation: 11/27/17 Time of Evaluation: 08:40 - Subjective Subjective: Surgery: Dr. Sanderson Pt seen and examined. No acute overnight events. States she feels a lot better this morning, pain is well controlled & and her breathing has improved after respiratory treatments. She admits to tolerating her diet but states she doesn' t have much of an appetite. Admits to flatus, but denies BM. Currently, denies N /V, F/C. Objective - Vital Signs/Intake and Output Vital Signs (last 24 hours): Temp Pulse Resp BP Pulse Ox 98.9 F 96 H 20 135/92 H 99 11/27/17 08:02 11/27/17 08:02 11/27/17 08:02 11/27/17 08:02 11/27/17 08:02 Intake and Output: 11/27/17 11/27/17 06:59 18:59 Intake Total 1280 Output Total 1955 Balance -675 - Medications Medications: Current Medications Clonidine HCl (Catapres) 0.1 mg PO TID PRN PRN Reason: bp>.150 Diltiazem HCl (Cardizem Cd) 180 mg PO DAILY [facility] Docusate Sodium (Colace) 100 mg PO BID [facility] Stop: 11/29/17 23:59 Last Admin: 11/26/17 17:37 Dose: 100 mg Heparin Sodium (Porcine) (Heparin) 5,000 units SC Q12 [facility] PRN Reason: Protocol Last Admin: 11/26/17 21:10 Dose: 5,000 units Piperacillin Sod/Tazobactam Sod (Zosyn 3.375 In Ns 100ml) 100 mls @ 200 mls/hr IVPB Q6 [facility] PRN Reason: Protocol Stop: 12/04/17 12:01 Last Admin: 11/27/17 05:01 Dose: 200 mls/hr Levalbuterol HCl (Xopenex) 1.25 mg IH [id number] [facility] Last Admin: 11/27/17 01:53 Dose: 1.25 mg Lisinopril (Zestril) 20 mg PO DAILY [facility] Last Admin: 11/26/17 10:20 Dose: 20 mg Loratadine (Claritin) 10 mg PO DAILY [facility] Last Admin: 11/26/17 10:13 Dose: 10 mg Morphine Sulfate (Morphine) 2 mg IVP Q4H PRN PRN Reason: Pain, moderate (4-7) Last Admin: 11/27/17 05:01 Dose: 2 mg Ondansetron HCl (Zofran Inj) 4 mg IVP Q4H PRN PRN Reason: Nausea/Vomiting Last Admin: 11/27/17 05:01 Dose: 4 mg Pantoprazole Sodium (Protonix Inj) 40 mg IVP Q12 [facility] Last Admin: 11/26/17 21:11 Dose: 40 mg Potassium Chloride (K-Dur 20 Meq Er Tab) 20 meq PO BRK [facility] - Labs Labs: 11/27/17 07:50 11/27/17 07:50 PT 16.9 SECONDS (9.4-12.5) 11/24/17 06:30 INR 1.46 11/24/17 06:30 APTT 33.3 Seconds (25.1-36.5) 11/24/17 06:30 - Constitutional Appears: Well, No Acute Distress - Head Exam Head Exam: ATRAUMATIC, NORMOCEPHALIC - ENT Exam ENT Exam: Mucous Membranes Moist - Respiratory Exam Respiratory Exam: NORMAL BREATHING PATTERN - Cardiovascular Exam Cardiovascular Exam: Tachycardia - GI/Abdominal Exam GI & Abdominal Exam: Soft, Tenderness (around umbilical incision, ). absent: Distended, Guarding, Rebound - Neurological Exam Neurological Exam: Alert, Awake, Oriented x3 - Skin Skin Exam: Dry, Warm Assessment and Plan - Assessment and Plan (Free Text) Assessment: 42F s/p lap geovanny; POD#3 Plan: - WBC trending down - H/H stable - will f/u CT abdomen/pelvis as pt continues to be tachy - encourage ambulation & IS - d/w Dr. Kin Larkin
[2017-11-27] MEDS: Potassium Chloride 20 mEq ER Tab PO SCH (09:03)
--- NOTE | 2017-11-27 09:14 | CARD ---
APPROVED REPORT Date of service: 11/27/2017 EKG Measurement Heart [id number] <Conclusion> Normal sinus rhythm Cannot rule out Anterior infarct, age undetermined Abnormal ECG
--- NOTE | 2017-11-27 10:28 | CP.PCM.PCO ---
Physician Communication Note - Physician Communication Note Physician Communication Note: CT/Labs OK:+Flatus/Rx Low fat diet-OOB
[2017-11-27] MEDS: diltiaZEM 180 mg/24 Hours CD Cap PO SCH (10:31)
--- NOTE | 2017-11-27 10:35 | CT ---
Date of service: 11/27/2017 PROCEDURE: CT Abdomen and Pelvis without intravenous contrast HISTORY: Ileus vs Partial Obstruction COMPARISON: None. TECHNIQUE: Technique. Contrast dose: Radiation dose: Total exam DLP = mGy-cm. This CT exam was performed using one or more of the following dose reduction techniques: Automated exposure control, adjustment of the mA and/or kV according to patient size, and/or use of iterative reconstruction technique. FINDINGS: LOWER THORAX: Elevated diaphragm with bibasilar pneumonia/ consolidation. LIVER: Unremarkable. No gross lesion or ductal dilatation. GALLBLADDER AND BILE DUCTS: Surgical clips in the right upper quadrant/ gallbladder fossa with fluid in the gallbladder fossa. Drainage tube present with infiltration in the right flank subcutaneous fat with areas of gas which are likely postsurgical. Fluid in the right subhepatic space as well. PANCREAS: Unremarkable. No gross lesion or ductal dilatation. SPLEEN: Unremarkable. ADRENALS: Unremarkable. No mass. KIDNEYS AND URETERS: 1.3 centimeter right renal cyst. . No hydronephrosis. No solid mass. VASCULATURE: Unremarkable. No aortic aneurysm. BOWEL: Multiple moderately distended small bowel loops with fluid compatible with partial small bowel obstruction/ileus. Fluid noted within the colon. . No obstruction. No gross mural thickening. APPENDIX: Unremarkable. Normal appendix. PERITONEUM: Unremarkable. No free fluid. No free air. LYMPH NODES: Unremarkable. No enlarged lymph nodes. BLADDER: Unremarkable. REPRODUCTIVE: 8.1 centimeter lobulated mass in the right hemipelvis possibly ovarian or uterine in origin; recommend correlation with pelvic MRI with and without contrast. BONES: No acute fracture. OTHER FINDINGS: None. IMPRESSION: Surgical clips in the right upper quadrant/ gallbladder fossa with fluid in the gallbladder fossa. Drainage tube present with infiltration in the right flank subcutaneous fat with areas of gas which are likely postsurgical. Fluid in the right subhepatic space as well. Multiple moderately distended small bowel loops with fluid compatible with partial small bowel obstruction/ileus. 8.1 centimeter lobulated mass in the right hemipelvis possibly ovarian or uterine in origin; recommend correlation with pelvic MRI with and without contrast.
--- NOTE | 2017-11-27 15:26 | CP.PCM.PN ---
Subjective - Date & Time of Evaluation Date of Evaluation: 11/27/17 Time of Evaluation: 12:20 - Subjective Subjective: Abdominal pain is improved, appetite is still poor, no diarrhea, no fevers. Objective - Vital Signs/Intake and Output Vital Signs (last 24 hours): Temp Pulse Resp BP Pulse Ox 98.9 F 110 H 20 127/86 99 11/27/17 08:02 11/27/17 10:32 11/27/17 08:02 11/27/17 10:32 11/27/17 08:02 Intake and Output: 11/27/17 11/27/17 06:59 18:59 Intake Total 1280 Output Total 1955 Balance -675 - Medications Medications: Current Medications Clonidine HCl (Catapres) 0.1 mg PO TID PRN PRN Reason: bp>.150 Diltiazem HCl (Cardizem Cd) 180 mg PO DAILY [facility] Last Admin: 11/27/17 10:31 Dose: 180 mg Docusate Sodium (Colace) 100 mg PO BID [facility] Stop: 11/29/17 23:59 Last Admin: 11/27/17 10:32 Dose: 100 mg Heparin Sodium (Porcine) (Heparin) 5,000 units SC Q12 [facility] PRN Reason: Protocol Last Admin: 11/26/17 21:10 Dose: 5,000 units Piperacillin Sod/Tazobactam Sod (Zosyn 3.375 In Ns 100ml) 100 mls @ 200 mls/hr IVPB Q6 [facility] PRN Reason: Protocol Stop: 12/04/17 12:01 Last Admin: 11/27/17 13:00 Dose: 200 mls/hr Levalbuterol HCl (Xopenex) 1.25 mg IH [id number] [facility] Last Admin: 11/27/17 13:52 Dose: 1.25 mg Lisinopril (Zestril) 20 mg PO DAILY [facility] Last Admin: 11/27/17 10:32 Dose: 20 mg Loratadine (Claritin) 10 mg PO DAILY [facility] Last Admin: 11/27/17 10:31 Dose: 10 mg Ondansetron HCl (Zofran Inj) 4 mg IVP Q4H PRN PRN Reason: Nausea/Vomiting Last Admin: 11/27/17 05:01 Dose: 4 mg Oxycodone/Acetaminophen (Percocet 5/325 Mg Tab) 1 tab PO Q4H PRN PRN Reason: Pain, moderate (4-7) Stop: 11/30/17 12:02 Pantoprazole Sodium (Protonix Inj) 40 mg IVP Q12 [facility] Last Admin: 11/27/17 10:32 Dose: 40 mg Potassium Chloride (K-Dur 20 Meq Er Tab) 20 meq PO BRK [facility] Last Admin: 11/27/17 09:03 Dose: 20 meq - Labs Labs: 11/27/17 07:50 11/27/17 07:50 PT 16.9 SECONDS (9.4-12.5) 11/24/17 06:30 INR 1.46 11/24/17 06:30 APTT 33.3 Seconds (25.1-36.5) 11/24/17 06:30 - Constitutional Appears: Non-toxic, Chronically Ill - Head Exam Head Exam: NORMAL INSPECTION - Neck Exam Neck Exam: absent: Meningismus - Respiratory Exam Respiratory Exam: Decreased Breath Sounds - Cardiovascular Exam Cardiovascular Exam: +S1, +S2 - GI/Abdominal Exam GI & Abdominal Exam: Soft. absent: Tenderness Assessment and Plan - Assessment and Plan (Free Text) Plan: Assessment sepsis due to gangrenous cholecystitis S/P laparoscopic cholecystectomy POD #3 HTN obesity with BMI 32 Plan Continue Zosyn and will continue to monitor clinically; WBC count has now normalized and will follow up repeat CT A/P results follow up further recommendations of surgery
[2017-11-27] MEDS: Oxycodone/Acetaminophen 5/325 mg Tab PO PRN (15:36)
--- NOTE | 2017-11-27 16:36 | PN ---
Copied To: Betzaida Barth MD Attending MD: Betzaida Barth MD DATE: 11/27/2017 SUBJECTIVE: The patient is 42 years old, seen and examined, lying in bed, seems to be comfortable. Looks better today. Has less pain. Feels hungry. No shortness of breath. PHYSICAL EXAMINATION: VITAL SIGNS: She is afebrile, pulse 96, respirations 20, blood pressure 135/92. LUNGS: Bilateral fair airflow. No rhonchi or crackle. HEART: S1 and S2 audible. ABDOMEN: Soft. Slight right upper quadrant palpable discomfort. NEUROLOGICAL: She is awake, alert, oriented, communicative. LABORATORY EXAM: WBC 10.1, hemoglobin 11, hematocrit 32.5, platelet Of 352. Chemistry: Sodium 142, potassium 3.6, chloride 105, CO2 of 30, BUN 6, creatinine 0.7, blood sugar of 132. ASSESSMENT: 1. Status post laparoscopic cholecystectomy. 2. Right upper lung infiltrate and right lower lung infiltrate. 3. Leukocytosis, improving. 4. Hypertension. 5. Sinus tachycardia. PLAN: Currently, the patient is on diltiazem, we will continue that. We will continue on DVT prophylaxis. Percocet as needed. The patient is on Protonix, Xopenex and Zosyn. Out of bed to chair. Physical therapy evaluation will be requested. Once the patient start to eat and tolerating, we will make discharge plan. Betzaida Barth MD
[2017-11-28] MEDS: Piperacillin/Tazobact 3.375 gm 100 ML IVPB SCH ×2 (01:02→05:23)
[2017-11-28] MEDS: Oxycodone/Acetaminophen 5/325 mg Tab PO PRN (01:45)
[2017-11-28] MEDS: Levalbuterol 1.25 MG/3 ML Inhal Soln UD IH SCH ×2 (01:47→07:29)
[2017-11-28 07:56] LABS: BASO # 0.02 K/mm3 (0.0-2.0); BASO % 0.3 % (0.0-3.0); EOS # 0.4 (0.0-0.7); EOS % 5.6 % (1.5-5.0); GRAN # 3.54 (1.4-6.5); GRAN % 53.5 % (50.0-68.0); HEMOGLOBIN 10.8 g/dL (12.0-16.0); LYMPH # 2.3 (1.2-3.4); LYMPH % 34.9 % (22.0-35.0); MEAN CELL VOLUME 92.7 fl (80.0-105.0); MEAN CORPUSCULAR HEMOGLOBIN 31.4 pg (25.0-35.0); MEAN CORPUSCULAR HGB CONC 33.9 g/dl (31.0-37.0); MONO # 0.4 (0.1-0.6); MONO % 5.7 % (1.0-6.0); RBC 3.44 10^6/uL (3.5-6.1); RED CELL DISTRIBUTION WIDTH 12.6 % (11.5-14.5); WHITE BLOOD COUNT 6.6 10^3/ul (4.5-11.0)
[2017-11-28 08:11] LABS: IRON 86 ug/dL (45-180)
--- NOTE | 2017-11-28 08:20 | CP.PCM.PCO ---
Physician Communication Note - Physician Communication Note Physician Communication Note: OK d/c:f/u office:Rx BP- Pain
[2017-11-28 08:21] LABS: % IRON SATURATION 35 % (20-55); ALB/GLOB RATIO 1.1 (1.1-1.8); ALBUMIN 3.1 g/dL (3.0-4.8); ALT/SGPT 22 U/L (7-56); AST/SGOT 30 U/L (14-36); BLOOD UREA NITROGEN 4 mg/dL (7-21); CALCIUM 8.7 mg/dL (8.4-10.5); GFR AFRICAN-AMERICAN > 60; GFR NON-AFRICAN AMERICAN > 60; TOTAL IRON BINDING CAPACITY 243 ug/dL (265-497)
[2017-11-28] MEDS: Potassium Chloride 20 mEq ER Tab PO SCH (08:32)
--- NOTE | 2017-11-28 08:35 | CP.PCM.PN ---
Subjective - Date & Time of Evaluation Date of Evaluation: 11/28/17 Time of Evaluation: 08:20 - Subjective Subjective: Surgery Progress Note for Dr. Sanderson Pt seen and examined at bedside this AM. No acute events overnight. Pt reports pain is well controlled. She feels hungry with good appetite and reports an episode of diarrhea otherwise tolerating her diet. Pt had 1 bm overnight and 1000 ml of urine and 110 ml serosangonious fluid in the drain. Pt denies SOB, chest pain, N,V/F or C. Heart rate is well controlled. Objective - Vital Signs/Intake and Output Vital Signs (last 24 hours): Temp Pulse Resp BP Pulse Ox 97.8 F 107 H 20 148/96 H 96 11/27/17 18:21 11/27/17 18:21 11/27/17 18:21 11/27/17 18:21 11/27/17 18:21 Intake and Output: 11/28/17 11/28/17 06:59 18:59 Intake Total 560 Output Total 1110 Balance -550 - Medications Medications: Current Medications Clonidine HCl (Catapres) 0.1 mg PO TID PRN PRN Reason: bp>.150 Diltiazem HCl (Cardizem Cd) 180 mg PO DAILY [facility] Last Admin: 11/27/17 10:31 Dose: 180 mg Docusate Sodium (Colace) 100 mg PO BID [facility] Stop: 11/29/17 23:59 Last Admin: 11/27/17 17:33 Dose: 100 mg Heparin Sodium (Porcine) (Heparin) 5,000 units SC Q12 [facility] PRN Reason: Protocol Last Admin: 11/27/17 22:05 Dose: 5,000 units Piperacillin Sod/Tazobactam Sod (Zosyn 3.375 In Ns 100ml) 100 mls @ 200 mls/hr IVPB Q6 [facility] PRN Reason: Protocol Stop: 12/04/17 12:01 Last Admin: 11/28/17 05:23 Dose: 200 mls/hr Levalbuterol HCl (Xopenex) 1.25 mg IH [id number] [facility] Last Admin: 11/28/17 07:29 Dose: 1.25 mg Lisinopril (Zestril) 20 mg PO DAILY [facility] Last Admin: 11/27/17 10:32 Dose: 20 mg Loratadine (Claritin) 10 mg PO DAILY [facility] Last Admin: 11/27/17 10:31 Dose: 10 mg Ondansetron HCl (Zofran Inj) 4 mg IVP Q4H PRN PRN Reason: Nausea/Vomiting Last Admin: 11/27/17 05:01 Dose: 4 mg Oxycodone/Acetaminophen (Percocet 5/325 Mg Tab) 1 tab PO Q4H PRN PRN Reason: Pain, moderate (4-7) Stop: 11/30/17 12:02 Last Admin: 11/28/17 01:45 Dose: 1 tab Pantoprazole Sodium (Protonix Inj) 40 mg IVP Q12 [facility] Last Admin: 11/27/17 22:06 Dose: 40 mg Potassium Chloride (K-Dur 20 Meq Er Tab) 20 meq PO BRK [facility] Last Admin: 11/27/17 09:03 Dose: 20 meq - Labs Labs: 11/28/17 07:30 11/28/17 07:30 PT 16.9 SECONDS (9.4-12.5) 11/24/17 06:30 INR 1.46 11/24/17 06:30 APTT 33.3 Seconds (25.1-36.5) 11/24/17 06:30 - Constitutional Appears: Well, Non-toxic, No Acute Distress - Head Exam Head Exam: ATRAUMATIC, NORMAL INSPECTION, NORMOCEPHALIC - Eye Exam Eye Exam: EOMI, Normal appearance - Respiratory Exam Respiratory Exam: Clear to Ausculation Bilateral, NORMAL BREATHING PATTERN. absent: Prolonged Expiratory Phase, Rales, Rhonchi, Wheezes, Respiratory Distress, Stridor - Cardiovascular Exam Cardiovascular Exam: REGULAR RHYTHM, RRR, +S1, +S2. absent: Diastolic murmur, Gallop, Irregular Rhythm, Rubs, +S4, Murmur - GI/Abdominal Exam GI & Abdominal Exam: Soft, Tenderness, Normal Bowel Sounds. absent: Firm, Guarding, Rigid, Mass, Organomegaly, Pulsatile Mass, Rebound Additional comments: appropriate tenderness around the incision which is dry and clean. Drain with serosanguinous output - Neurological Exam Neurological Exam: Alert, Awake - Psychiatric Exam Psychiatric exam: Normal Affect, Normal Mood - Skin Skin Exam: Dry, Intact Assessment and Plan - Assessment and Plan (Free Text) Assessment: 42F s/p lap geovanny; POD#3 Plan: Continue solid diet as tolerated Will discontinue drain Monitor Is& Os Encourage ambulation and spirometry Clear for discharge from a surgical perspective D/W Dr. Kin Birmingham PGY3
[2017-11-28] MEDS ORDERED: Magnesium Sulfate 1 gm in D5W 1 GM/100 ML BAG IVPB ONE (08:47)
[2017-11-28 09:25] VITALS: BP 141/90; PULSE 90; TEMP 98.5; O2SAT 95
[2017-11-28] MEDS: diltiaZEM 180 mg/24 Hours CD Cap PO SCH (10:15)
[2017-11-28] MEDS ORDERED: Amoxicillin-Clav 875-125 mg Tab PO SCH (10:45)
--- NOTE | 2017-11-28 12:07 | PN ---
Copied To: Jacob Ruiz MD Attending MD: Jacob Ruiz MD DATE: 11/28/2017 SUBJECTIVE: The patient is in bed, in no acute distress, nontoxic. PHYSICAL EXAMINATION: VITAL SIGNS: Temperature is 98, blood pressure is 140/90, respiratory rate of 16. HEENT: Examination of HEENT is unremarkable. NECK: Supple. LUNGS: Have decreased breath sounds. HEART: Normal S1, S2. ABDOMEN: Soft, nontender. No organomegaly. No rebound. No guarding. LABORATORY DATA: Laboratory examination reveals a white count of 6.6, hemoglobin of 10, platelets of 358. Chemistries are noted. Blood cultures have Staphylococcus hominis. Review of orders reveals the patient to be on Zosyn. Dr. Darrick Birmingham's progress note from today is reviewed. Dr. Sanderson' communication note report is reviewed. Dr. Barth note from yesterday is reviewed. ASSESSMENT AND PLAN: A 42-year-old female with sepsis due to gangrenous cholecystitis, status post laparoscopic cholecystectomy, postprocedure day #4 in a patient with hypertension with obesity with body mass index of 32, now normalized. We will discontinue the Zosyn and complete with p.o. Augmentin. We will do a difficult postoperative course. Augmentin at 875 p.o. b.i.d. x5 days. Jacob Ruiz MD
--- NOTE | 2017-11-29 02:48 | DS ---
Copied To: Betzaida Barth MD Attending MD: Betzaida Barth MD. HISTORY OF PRESENT ILLNESS: Patient is 42 years old, who came in with right abdominal pain, upper quadrant. Patient states she has pain since June, has been getting intermittent pain, was unable to eat, lost 30 to 40 pounds. Pain got worse, so she came to ER and had leukocytosis and with rebound and guarding. MRCP showed acute cholecystitis and cholelithiasis, so patient was taken to OR and had laparoscopic cholecystectomy done. Postop was complicated with pneumonia, shortness of breath, and tachycardia, so she was started on lisinopril, along with that she was given Cardizem and started on nebulizer treatment, has been on IV antibiotics, doing well and anxious to go home. PHYSICAL EXAMINATION: VITAL SIGNS: Patient is afebrile, pulse 90, respirations 20, blood pressure 140/90. LUNGS: Bilateral good airflow. No rhonchi or crackle. HEART: S1 and S2 audible. ABDOMEN: Soft. Slight palpable discomfort. NEUROLOGICAL: She is awake, alert, oriented, communicative. LABORATORY DATA: WBC 6.6, hemoglobin 10.8, hematocrit 31.9, platelets 357. Chemistry: Sodium 143, potassium 3.3, chloride 105, CO2 of 28, BUN 4, creatinine 0.7, blood sugar of 93. LFTs are within normal limits. ASSESSMENT: 1. Acute cholecystitis, status post cholecystectomy. 2. Hypertension. 3. Hyperlipidemia. PLAN: Patient is being discharged home. She does not want any narcotic; however, she was given prescription of Augmentin 875 twice a day for 5 more days. She will follow up with Dr. Sanderson as outpatient. She was given prescription of Cardizem CD 180 daily and she will follow up with her PMD to monitor her blood pressure. Betzaida Barth MD
== END 2017-11-28 14:38 | disposition home or self-care (01) | DRG 853 ==
LOC: ED 00:44 → ERH 04:35 → 3RSO 05:33
PROVIDERS: ADMIT Internal Medicine; ATTEND Internal Medicine
PROC: BF131ZZ Fluoroscopy of Gallbladder and Bile Ducts using Low Osmolar Contrast (ICD-10-PCS; 2017-11-24)
PROC: 0FT44ZZ Resection of Gallbladder, Percutaneous Endoscopic Approach (ICD-10-PCS; principal; 2017-11-24 12:00)
DX: A41.9 Sepsis, unspecified organism (principal); J18.9 Pneumonia, unspecified organism; K80.00 Calculus of gallbladder with acute cholecystitis without obstruction; J98.11 Atelectasis; K22.70 Barrett's esophagus without dysplasia; E66.9 Obesity, unspecified; Z68.32 Body mass index [BMI] 32.0-32.9, adult; E78.5 Hyperlipidemia, unspecified; I10 Essential (primary) hypertension; N28.1 Cyst of kidney, acquired; N83.209 Unspecified ovarian cyst, unspecified side; R63.4 Abnormal weight loss